=== PATIENT | male | born 1980 | race Caucasian/White ===

== ENCOUNTER 2018-01-07 12:39 | Observation (INO) ==
[2018-01-07] MEDS ORDERED: Aspirin 81 MG TAB.CHEW PO ONE (12:44)
--- NOTE | 2018-01-07 12:50 | Emergency Department Note ---
Disposition Clinical Impression: Tachycardia, Gait difficulty Leukocytosis Qualifiers: Leukocytosis type: unspecified Qualified Code(s): D72.829 - Elevated white blood cell count, unspecified Disposition: Admitted As Inpatient Condition: Good Referrals: Mikey Jaime MD [Primary Care Provider] - Forms: Work/School Release, ED Satisfaction Letter Time of Disposition: 15:13 General Adult HPI - General Chief complaint: ED General Medical Stated complaint: Illness Time Seen by Provider: 01/07/18 12:43 Source: patient, EMS Mode of arrival: EMS Limitations: no limitations Nursing Notes Reviewed: Yes Vital Signs Reviewed: Yes - History of Present Illness HPI Narrative: Patient is a 37-year-old male with past medical history of hypertension. He presents today via EMS due to "leaning to the right ", sweating. EMS states that they were initially called for possible heart attack. 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 He began to fill like he was leaning to the right, denies any specific numbness, tingling, weakness. Denies any vertigo, does not feel that the room is spinning, does not feel lightheaded. He does have some shortness of breath but denies any chest pain. Denies any history of IA or stent placement in the past. Admits to some nausea but denies any other vomiting, diarrhea, abdominal pain, fevers. He does also admit to urinary retention, he recently started on Flomax. He does report that he was trying to urinate when this episode started. Denies any pain with urination, any blood in his urine or dark urine, discharge. No history of stroke in the past. No personal history of blood clots. He does state that his father has had multiple blood clots in the past. No calf or leg pain/redness. - Related Data Home Medications Medication Instructions Recorded Confirmed Lisinopril [Zestril] 10 mg PO DAILY 01/01/18 01/01/18 Simvastatin [Zocor] 20 mg PO HS 01/01/18 01/01/18 traZODone [TraZODone] 100 mg PO DAILY 01/01/18 01/01/18 Previous Rx's Medication Instructions Recorded Haloperidol [Haldol] 10 mg PO BID #60 tablet 05/14/16 Tamsulosin [Flomax] 0.4 mg PO DAILY #20 cap.er.24h 01/01/18 Allergies Allergy/AdvReac Type Severity Reaction Status Date / Time No Known Allergies Allergy Verified 01/01/18 10:01 All systems ED: reviewed and negative except as stated. Constitutional: Denies: fever Cardiovascular: Denies: chest pain Respiratory: Reports: dyspnea Gastrointestinal: Reports: nausea. Denies: abdominal pain, vomiting, diarrhea, constipation Neurological: Reports: other (Leaning to the right when walking). Denies: weakness, numbness, vertigo Past Medical History - Past Medical History Attestation: Yes The following information was validated with the patient. Source: patient Medical history: Reports: non-contributory, hypertension Psychiatric history: Reports: no psych history - Social History Smoking Status: Current every day smoker Smokeless Tobacco Status: No Alcohol use: Reports: occasionally Physical Exam - General Limitations: no limitations General appearance: alert, anxious, other (diaphoretic) - Head Head exam: atraumatic, normocephalic, normal inspection - Eye Eye exam: Present: normal appearance, PERRL, EOMI - ENT ENT exam: normal exam, normal oropharynx, mucous membranes moist - Neck Neck exam: Present: normal inspection, full ROM, trachea midline - Chest Chest inspection: Present: normal inspection, symmetric chest wall rise - Respiratory Respiratory exam: Present: normal lung sounds bilaterally - Cardiovascular Cardiovascular exam: Present: regular rate, normal rhythm, normal heart sounds - Abdominal Exam Abdominal exam: Present: soft, Non-Tender. Absent: tenderness, distention, guarding, rebound, rigidity - Extremities Exam Extremities exam: Present: normal inspection, full ROM. Absent: tenderness, pedal edema, calf tenderness - Neurological Exam Neurological exam: Present: alert, oriented X3, CN II-XII intact. Absent: motor sensory deficit - Expanded Neurological Exam Patient oriented to: Present: person, place, time Speech: Present: fluid speech Cranial nerves: EOM function (II, III, IV, ): Normal, facial sensation (V): Normal, facial palsy (VII): Normal, spinal accessory function (XI): Normal, tongue deviation (XII): Normal Cerebellar function: finger to nose: Normal Motor strength - LUE: 5/5 Motor strength - RUE: 5/5 Motor strength - LLE: 5/5 Motor strength - RLE: 5/5 Sensory exam upper extremity: light touch: Normal Sensory exam lower extremity: light touch: Normal Coma Scale Eye Opening: Spontaneous Coma Scale Motor Response: Obeys Commands Coma Scale Verbal Response: Oriented Coma Scale Total: 15 - Psychiatric Psychiatric exam: Present: normal affect, normal mood - Skin Skin exam: Present: warm, dry, intact, normal color Course Course Narrative: Patient was initially hypoxic around 89% on room air on arrival, he is now around 93%. He does appear diaphoretic, short of breath. No personal history of DVT or PE. However, he does have a family history. There is concern for possible PE the patient is low risk factors. Will obtain d-dimer. We will also obtain basic labs, troponin. We will also obtain chest x-ray, EKG. His NIH on presentation was a 0. No cerebellar signs. However, we will go ahead and obtain CT the head due to the patient's concern for leaning to the right. Will also give fluids for tachcyardia. 01/07/2018 at 12:52. EKG #1. Sinus tachycardia. Rate 125. CO 161. QRS 109. QTc 449. No acute ST elevation or depression. 14:54 chest x-ray negative. Head CT negative. Patient still has sensation that he is falling to the right but has no nystagmus, no focal neurologic deficits, no cerebellar signs. Troponin negative. D-dimer negative. Patient has elevation white blood cell count. No current signs of infection. Again, chest x-ray is negative, no skin findings, he has no current abdominal pain. Still mildly tachycardic, fluids are currently infusing. I discussed admitting the patient for further CVA/TIA workup and further assessment of tachycardia and unexplained white blood cell count. He was agreeable with this plan. Of note, bedside ultrasound was performed of the bladder and showed 110 mL of urine. Patient states that he has not urinated since arriving. No large amount of ur inary retention at this time. Urinalysis is pending. I talked with hospitalist Dr. Cason, he has requested blood cultures to be obtained as well. Patient will be admitted to [address] [place] [address] for close observation. Patient does not meet any SIRS criteria at this time but does have elevated heart rate still at this time. They will monitor for fever or any additional signs of infection and will follow up on urinalysis. Chest X-Ray 01/07/18 12:44 IMPRESSION: No acute cardiopulmonary process. D/ / 01/07/2018 13:05:04 Ludwig Mitchell MD / lizzette Interpreting Provider: Ludwig Mitchell MD Head CT 01/07/18 12:46 IMPRESSION: No acute intracranial abnormality. D/ / Iron Rodriguez MD / Iron Rodriguez MD Interpreting Provider: Iron Rodriguez MD Vital Signs Temperature 98.4 F 01/07/18 12:44 Pulse Rate 124 01/07/18 12:44 Respiratory Rate 14 01/07/18 12:44 Blood Pressure 143/83 01/07/18 12:44 O2 Sat by Pulse Oximetry 92 01/07/18 12:44 Temperature 98.4 F 01/07/18 12:44 Pulse Rate 112 01/07/18 13:53 Respiratory Rate 19 01/07/18 13:53 Blood Pressure 132/78 01/07/18 13:53 O2 Sat by Pulse Oximetry 92 01/07/18 13:53 Oxygen Delivery Oxygen Delivery Room Air Medical Decision Making - MDM Narrative Medical decision making narrative: Patient was initially hypoxic around 89% on room air on arrival, he is now around 93%. He does appear diaphoretic, short of breath. No personal history of DVT or PE. However, he does have a family history. There is concern for possible PE the patient is low risk factors. Will obtain d-dimer. We will also obtain basic labs, troponin. We will also obtain chest x-ray, EKG. His NIH on presentation was a 0. No cerebellar signs. However, we will go ahead and obtain CT the head due to the patient's concern for leaning to the right. Will also give fluids for tachcyardia. 01/07/2018 at 12:52. EKG #1. Sinus tachycardia. Rate 125. CO 161. QRS 109. QTc 449. No acute ST elevation or depression. 14:54 chest x-ray negative. Head CT negative. Patient still has sensation that he is falling to the right but has no nystagmus, no focal neurologic deficits, no cerebellar signs. Troponin negative. D-dimer negative. Patient has elevation white blood cell count. No current signs of infection. Again, chest x-ray is negative, no skin findings, he has no current abdominal pain. Still mildly tachycardic, fluids are currently infusing. I discussed admitting the patient for further CVA/TIA workup and further assessment of tachycardia and unexplained white blood cell count. He was agreeable with this plan. Of note, bedside ultrasound was performed of the bladder and showed 110 mL of urine. Patient states that he has not urinated since arriving. No large amount of urinary retention at this time. Urinalysis is pending. I talked with hospitalist Dr. Cason, he has requested blood cultures to be obtained as well. Patient will be admitted to [address] [place] [address] for close observation. Patient does not meet any SIRS criteria at this time but does have elevated heart rate still at this time. They will monitor for fever or any additional signs of infection and will follow up on urinalysis. - Medical Records Medical records reviewed: Yes I reviewed the patient's medical records. - Lab Data Lab results reviewed: Yes I reviewed the patient's lab results. Result diagrams: 01/07/18 12:54 01/07/18 12:54 Lab Results 01/07/18 01/07/18 01/07/18 Range/Units 12:44 12:54 12:54 WBC 17.9 H (4.3-11.1) K/mcL RBC 5.20 (4.19-5.50) M/mcL Hgb 16.0 (12.9-16.9) g/dL Hct 47.1 (37.5-50.1) % MCV 90.6 (83.0-100.0) fL MCH 30.8 (28.0-33.3) pg MCHC 34.0 (31.6-35.5) g/dL RDW 13.6 (11.5-14.5) % Plt Count 368 (140-400) K/mcL MPV 10.2 (9.4-12.4) fL Immature Gran % 0.5 (0-4) % Seg Neutrophils % 83.4 % Lymphocytes % 11.0 % Monocytes % 4.7 % Eosinophils % 0.1 % Basophils % 0.3 % Neutrophils # 14.9 H (1.6-8.9) K/mcL Lymphocytes # 2.0 (0.6-4.6) K/mcL Monocytes # 0.8 (0.0-1.3) K/mcL Eosinophils # 0.0 (0.0-0.6) K/mcL Basophils # 0.1 (0.0-0.2) K/mcL PT 11.8 (9.4-12.1) Seconds INR 1.0 APTT 32.2 (26.0-36.0) Seconds D-Dimer 496 (0-500) ng/mLFEU Sodium 140 (136-145) mEq/L Potassium 3.5 (3.5-5.1) mEq/L Chloride 108 H (98-107) mEq/L Carbon Dioxide 19 L (23-29) mEq/L BUN 17 (6-20) mg/dL Creatinine 1.03 (0.70-1.30) mg/dL Est GFR ( Amer) > 60 (> 60) Est GFR (Non-Af Amer) > 60 (> 60) BUN/Creatinine Ratio 17 (6-26) Glucose 108 H (70-105) mg/dL Calculated Osmolality 292 (280-300) Calcium 9.6 (8.6-10.3) mg/dL Troponin I < 0.03 (< 0.04) ng/mL - Radiology Data Radiology results reviewed: Yes I reviewed the patient's radiology results. - EKG Data EKG #1 EKG attestation: Yes I reviewed and interpreted this EKG. Hong - Hong Situation: Demographics, MOA Background: Presenting Complaint, Relevant PMH, Meds, & Allergies Assessment: Vital Signs, Course and respsone to treatment, Exam Concerns, Patie nt/Family Expectation, Pertinant Lab Results, Outstanding Labs (Pending UA and blood cultures) Recommendation: Barrier(s) to disposition, Recommendation based on pending studi es, treatments, or consults Hong Report Given to: Dr. Kamla Pitts Repor Time: 15:13
[2018-01-07] MEDS ORDERED: 0.9 % Sodium Chloride 1,000 ML IVC ONE (12:53)
[2018-01-07 13:20] LABS: Basophils # 0.1 K/mcL (0.0-0.2); Basophils % 0.3 %; Eosinophils % 0.1 %; Hematocrit 47.1 % (37.5-50.1); Immature Granulocytes % 0.5 % (0-4); Mean Corpuscular Hemoglobin 30.8 pg (28.0-33.3); Mean Corpuscular Volume 90.6 fL (83.0-100.0); Mean Platelet Volume 10.2 fL (9.4-12.4); Monocytes # 0.8 K/mcL (0.0-1.3); Monocytes % 4.7 %; Neutrophils # 14.9 K/mcL (1.6-8.9); Platelet Count 368 K/mcL (140-400); Red Cell Distribution Width 13.6 % (11.5-14.5); Segmented Neutrophils % 83.4 %
[2018-01-07 13:28] LABS: Prothrombin Time 11.8 Seconds (9.4-12.1)
[2018-01-07 13:30] LABS: Activated Partial Thrombo Time 32.2 Seconds (26.0-36.0)
[2018-01-07 13:42] LABS: Troponin I < 0.03 ng/mL (< 0.04)
[2018-01-07 13:44] LABS: BUN/Creatinine Ratio 17 (6-26); Blood Urea Nitrogen 17 mg/dL (6-20); Calcium 9.6 mg/dL (8.6-10.3); Carbon Dioxide 19 mEq/L (23-29); Chloride 108 mEq/L (98-107); Glucose 108 mg/dL (70-105); Osmolality,Calculated 292 (280-300); Potassium 3.5 mEq/L (3.5-5.1); Sodium 140 mEq/L (136-145); eGFR For Non-African Americans > 60 (> 60)
[2018-01-07 16:14] LABS: Bilirubin,Urine Negative (Negative); Blood,Urine Small (Negative); Clarity,Urine Turbid (Clear); Color,Urine Yellow (Yellow); Glucose,Urine (UA) Normal (Normal); Ketones,Urine Trace mg/dL (Negative); Leukocyte Esterase,Urine Negative (Negative); Nitrite,Urine Negative (Negative); PH,Urine 5.5 pH Units (5.0-8.0); Protein,Urine 30 mg/dL (Neg-Trace); Specific Gravity,Urine 1.028 (1.010-1.025); Urobilinogen,Urine Normal (Normal)
[2018-01-07] MEDS ORDERED: Naloxone 0.4 MG/ML INJ IVP PRN (16:16)
[2018-01-07] MEDS ORDERED: Acetaminophen 325 MG TABLET PO PRN (16:16)
[2018-01-07 16:19] LABS: Bacteria,Urine None Seen per hpf (None-Few); Squamous Epithelial Cell,Urine Many per lpf (None-Few)
--- NOTE | 2018-01-07 16:31 | Internal Med History&Physical ---
Date of Encounter: 01/07/18 Time of Encounter: 15:30 Internal Medicine - H&P: HPI Chief complaint: Lean to right on walking Admitted From: Home Plans for Post Hospital Care: Home History of present illness: Mr. Porras is a 37 year old male presented to ER for leaning on right when walking. Past medical history is significant for schizoaffective disorder, psychosis, hypertension, difficulty urinating. Patient said he has difficulty urinating for about 2 months. Denies dysuria or burning but has increased the urinating frequency. Patient was scheduled to see a urologist as outpatient. Today patient found he always lean to right when walking. Patient denies headache, dizziness, slurred speech, weakness/tingli ng/numbness of body, denies urinary or fecal incontinence. Patient is on by mouth Haldol. He denies suicidal or homicidal idea. Patient also feels illness today with low fever 99.2, runny nose. Patient denies sore throat, shortness of breath, chest pain, abdominal pain, vomiting. He has a chronic cough, which he thought is related to lisinopril. Patient has mild nausea yesterday, no vomiting. No nausea today. Patient has 1 episode of diarrhea 2 days ago but has normal bowel movement yesterday and today. In the emergency room, he was found tachycardia, leukocytosis. Chest x-ray negative. Head CAT scan negative. Patient was admitted for further management. Past Med Surg Social Fam HX - Past Medical History Medical history: non-contributory, hypertension Psychiatric history: no psych history - Past Surgical History Additional surgical history: Hand sx, ear tubes - Social History Smoking Status: Current every day smoker Smokeless Tobacco Status: No Alcohol use: occasionally Drug use: none - Family History Father Living Status: Still Living Hx Family Cardiac Disorders: Yes Mother Living Status: Still Living Hx Family Endocrine Disorder: Yes (DM) Internal Medicine - H&P: Meds Lisinopril [Zestril] 10 mg PO DAILY 01/01/18 [History] Simvastatin [Zocor] 20 mg PO HS 01/01/18 [History] Tamsulosin [Flomax] 0.4 mg PO DAILY #20 cap.er.24h 01/01/18 [Rx] traZODone [TraZODone] 100 mg PO DAILY 01/01/18 [History] Allergy/AdvReac Type Severity Reaction Status Date / Time No Known Allergies Allergy Verified 01/01/18 10:01 All Systems PM: A 10-system review of systems was performed and is negative for pertinent findings except as documented above in the HPI. - Constitutional Vitals: Temp Pulse Resp BP Pulse Ox 98.4 F 105 20 135/72 97 01/07/18 12:44 01/07/18 15:56 01/07/18 15:56 01/07/18 15:56 01/07/18 15:56 General appearance: Present: A&O X 3, no acute distress, answers questions appropriately Exam: Pt is AAO x 3, in NAD HEENT: NC/AT, PERRL Neck: Supple, no JVD, no LAD Lungs: CTA b/l Heart: S1S2, RRR, HR 103 Abd: Soft, nontender, BS present Ext: ROM wnl, no pedal edema Neuro: No focal deficit, finger to nose test shows mild slow. Internal Med - H&P Results - Labs CBC & Chem 7: 01/07/18 12:54 01/07/18 12:54 Labs: Short CBC 01/07/18 Range/Units 12:54 WBC 17.9 H (4.3-11.1) K/mcL Hgb 16.0 (12.9-16.9) g/dL Hct 47.1 (37.5-50.1) % Plt Count 368 (140-400) K/mcL Neutrophils # 14.9 H (1.6-8.9) K/mcL BMP 01/07/18 12:54 Sodium 140 Potassium 3.5 Chloride 108 H Carbon Dioxide 19 L BUN 17 Creatinine 1.03 Glucose 108 H Calcium 9.6 Cardiac Enzymes 01/07/18 Range/Units 12:54 Troponin I < 0.03 (< 0.04) ng/mL Urine 01/07/18 Range/Units 15:51 Urine Color Yellow (Yellow) Urine Clarity Turbid A (Clear) Urine pH 5.5 (5.0-8.0) pH Units Ur Specific [place] 1.028 H (1.010-1.025) Urine Protein 30 H (Neg-Trace) mg/dL Urine Glucose (UA) Normal (Normal) mg/dL - Impressions ITS Impressions Chest X-Ray 01/07/18 12:44 IMPRESSION: No acute cardiopulmonary process. D/ / 01/07/2018 13:05:04 Ludwig Mitchell MD / lizzette Interpreting Provider: Ludwig Mitchell MD Head CT 01/07/18 12:46 IMPRESSION: No acute intracranial abnormality. D/ / Iron Rodriguez MD / Iron Rodriguez MD Interpreting Provider: Iron Rodriguez MD - Assessment and plan (1) SIRS (systemic inflammatory response syndrome) Current Visit: Yes Status: Acute Assessment and plan: Patient to meet SIRS criteria with leukocytosis and tachycardia. No clear source of infection but has difficulty urinating and increased frequency. - We will empirically start her Rocephin for possible UTI. May discontinue if SIRS resolved and culture negative. - IV fluid given from ER, will continue. Will check lactate level. - Respiratory viral panel to rule out viral infection (2) DVT prophylaxis Current Visit: Yes Status: Acute Assessment and plan: Heparin subcutaneously (3) Gait difficulty Current Visit: Yes Status: Acute Assessment and plan: Patient complaint leaning on the right when walking. Improved in the emergency room. No motor/sensation deficit identified. Highly suspect side effect of haldol use. - Last Haldol dose was last night. Will hold Haldol, consult psychiatry for medication adjustment. - Continue closely monitor patient. - NIHSS score 0, pt is young, not consider CVA or TIA (4) Leukocytosis Current Visit: Yes Status: Acute Assessment and plan: Neutrophil dominated leukocytosis. - Place patient on Rocephin at this point for possible UTI - Continue follow-up CBC in a.m. Qualifiers: Leukocytosis type: unspecified Qualified Code(s): D72.829 - Elevated white blood cell count, unspecified (5) Tachycardia Current Visit: Yes Status: Acute Assessment and plan: Management as above (6) Dysuria Current Visit: No Status: Acute Assessment and plan: Management as above. For difficulty urinating, bladder scan in ER done, no urinary retention, will continue Flomax, continue follow-up with urology as outpatient. - Time Spent With Patient Total time spent is greater than 50% in coordination of care (as documented) at patient's floor/unit and/or counseling patient: 30 min 25 - 35 minutes
[2018-01-07 16:35] LABS: Hyaline Casts,Urine Few per lpf (None-Few)
[2018-01-07] MEDS ORDERED: cefTRIAXone 1,000 MG in Water for inj. (sterile) 20 ML 10 ML IVPB ONE (17:00)
[2018-01-07] MEDS: *HR* Heparin 5,000 UNIT/ML VIAL SQ SCH (18:18)
[2018-01-07] MEDS: Nicotine 14 MG PATCH.TD24 TD SCH (18:19)
[2018-01-07] MEDS: 0.9 % Sodium Chloride 1,000 ML IVC SCH (18:19)
[2018-01-07] MEDS: cefTRIAXone 1,000 MG in Water for inj. (sterile) 20 ML 10 ML IVPB SCH (18:19)
[2018-01-07] MEDS ORDERED: Melatonin 3 MG TABLET PO PRN (20:46)
[2018-01-07] MEDS ORDERED: traZODone 50 MG TABLET PO SCH (21:00)
--- NOTE | 2018-01-08 02:30 | Electrocardiograph Report ---
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
[2018-01-08] MEDS: 0.9 % Sodium Chloride 1,000 ML IVC SCH (04:39)
[2018-01-08 04:59] LABS: Basophils # 0.1 K/mcL (0.0-0.2); Basophils % 0.5 %; Eosinophils # 0.4 K/mcL (0.0-0.6); Eosinophils % 2.4 %; Hematocrit 43.2 % (37.5-50.1); Immature Granulocytes % 0.3 % (0-4); Lymphocytes # 5.6 K/mcL (0.6-4.6); Lymphocytes % 37.7 %; Mean Corpuscular HGB Conc 32.2 g/dL (31.6-35.5); Mean Corpuscular Hemoglobin 29.7 pg (28.0-33.3); Mean Corpuscular Volume 92.3 fL (83.0-100.0); Mean Platelet Volume 10.3 fL (9.4-12.4); Monocytes # 0.9 K/mcL (0.0-1.3); Monocytes % 6.1 %; Neutrophils # 7.8 K/mcL (1.6-8.9); Platelet Count 320 K/mcL (140-400); Red Blood Count 4.68 M/mcL (4.19-5.50); Red Cell Distribution Width 14.1 % (11.5-14.5)
[2018-01-08 05:15] LABS: Hemoglobin 13.9 g/dL (12.9-16.9)
[2018-01-08 05:19] LABS: BUN/Creatinine Ratio 21 (6-26); Blood Urea Nitrogen 15 mg/dL (6-20); Calcium 8.4 mg/dL (8.6-10.3); Carbon Dioxide 21 mEq/L (23-29); Chloride 108 mEq/L (98-107); Glucose 105 mg/dL (70-105); Magnesium 2.1 mg/dL (1.6-2.6); Osmolality,Calculated 285 (280-300); Potassium 3.7 mEq/L (3.5-5.1); Sodium 137 mEq/L (136-145); eGFR For Non-African Americans > 60 (> 60)
[2018-01-08] MEDS: *HR* Heparin 5,000 UNIT/ML VIAL SQ SCH ×2 (05:50→18:34)
[2018-01-08 07:28] LABS: Adenovirus Not Detected (Not Detect); Bordetella Pertussis Not Detected (Not Detect); Chlamydophila pneumoniae Not Detected (Not Detect); Coronavirus 229E Not Detected (Not Detect); Coronavirus HKU1 Not Detected (Not Detect); Coronavirus NL63 Not Detected (Not Detect); Coronavirus OC43 Not Detected (Not Detect); Human Metapneumovirus Not Detected (Not Detect); Human Rhinovirus/Enterovirus Not Detected (Not Detect); Influenza A Subtype 2009 H1 Not Detected (Not Detect); Influenza A Untypeable Not Detected (Not Detect); Influenza B Not Detected (Not Detect); Mycoplasma pneumoniae Not Detected (Not Detect); Parainfluenza Virus 1 Not Detected (Not Detect); Parainfluenza Virus 2 Not Detected (Not Detect); Parainfluenza Virus 3 Not Detected (Not Detect); Parainfluenza Virus 4 Not Detected (Not Detect); Respiratory Syncytial Virus Not Detected (Not Detect)
[2018-01-08] MEDS: Nicotine 14 MG PATCH.TD24 TD SCH (09:52)
--- NOTE | 2018-01-08 15:58 | Internal Med Progress Note ---
Hospitalist Progress Note - Encounter Date of Encounter: 01/08/18 Time of Encounter: 15:55 - Subjective Interval History: I have seen and evaluated the patient at bedside. Patient reports that the leaning to the right side has resolved. But patient mother in the room reports lip smacking. He denies chest pain, shortness of breath or abdominal pain. - Exam Vitals: Temp Pulse Resp BP Pulse Ox 97.6 F 95 15 148/87 92 01/08/18 08:11 01/08/18 08:11 01/08/18 08:11 01/08/18 08:11 01/08/18 08:11 Exam: Vitals: Reviewed. General: Obese, Alert and oriented x4. In mild distress due to lip smacking Skin: Normal color, no rash, no lesions. HEENT: EOM, pupils equal, round and reactive. Cardiovascular: RRR, Normal S1 & S2, no rubs, murmurs or gallops. Lungs: Clear to auscultation bilaterally, no wheezes or crackles. Abdomen: Soft, non-tender, no rigidity. Extremities: No deformity, no edema or tenderness, no joint swelling or clubbing. Neurological: Normal cognition and motor skills. Rest of the physical exam is non contributory - Assessment and Plan (1) Gait difficulty Current Visit: Yes Status: Acute Assessment and Plan: Associated with leaning to the right side and smacking of the lips. Patient has been on Haldol for schizoaffective disorder. Possible early signs of tardive dyskinesia? Plan Psychiatrist has been consulted. On amantadine 100 mg by mouth twice a day. Diphemphydramine 25mg/PO Q8HRS PRN (2) Dysuria Current Visit: No Status: Acute Assessment and Plan: Patient being treated empirically for UTI. We will continue ceftriaxone 1 g IV daily. (3) Leukocytosis Current Visit: Yes Status: Acute Assessment and Plan: Multifactorial. Possible due to urinary tract infection. Patient being covered empirically with IV antibiotics. (4) SIRS (systemic inflammatory response syndrome) Current Visit: Yes Status: Resolved (5) Hypertension Current Visit: Yes Status: Chronic Assessment and Plan: Blood pressure has been well controlled. Continue losartan 25 mg by mouth daily. DVT Prophylaxis: On heparin 5000 units subcutaneous twice a day. - Summary of Assessment and Plan Summary of Assessment and Plan: Patient to remain in the hospital due to possible extrapyramidal symptoms secondary to Haldol use. - Time Spent with Patient Total time spent is greater than 50% in coordination of care (as documented) at patient's floor/unit and/or counseling patient: Greater than 35 minutes (40) Plan of Care Discussed with: patient (His family and the nurse.) Internal Medicine: Result - Labs CBC & Chem 7: 01/08/18 04:45 01/08/18 04:45 Labs: Short CBC 01/08/18 Range/Units 04:45 WBC 14.8 H (4.3-11.1) K/mcL Hgb 13.9 D (12.9-16.9) g/dL Hct 43.2 (37.5-50.1) % Plt Count 320 (140-400) K/mcL Neutrophils # 7.8 (1.6-8.9) K/mcL BMP 01/08/18 04:45 Sodium 137 Potassium 3.7 Chloride 108 H Carbon Dioxide 21 L BUN 15 Creatinine 0.70 Glucose 105 Calcium 8.4 L Urine 01/07/18 Range/Units 15:51 Urine Color Yellow (Yellow) Urine Clarity Turbid A (Clear) Urine pH 5.5 (5.0-8.0) pH Units Ur Specific [place] 1.028 H (1.010-1.025) Urine Protein 30 H (Neg-Trace) mg/dL Urine Glucose (UA) Normal (Normal) mg/dL - ABG Interpretation ABG results: PT/INR, D-dimer PT 11.8 Seconds (9.4-12.1) 01/07/18 12:44 D-Dimer 496 ng/mLFEU (0-500) 01/07/18 12:44 - Impressions Impressions Chest X-Ray 01/07/18 12:44 IMPRESSION: No acute cardiopulmonary process. D/ / 01/07/2018 13:05:04 Ludwig Mitchell MD / lizzette Interpreting Provider: Ludwig Mitchell MD Consult Discharge Plan - Plan Referrals: Mikey Jaime MD [Primary Care Provider] - (3) Leukocytosis Qualifiers: Leukocytosis type: unspecified Qualified Code(s): D72.829 - Elevated white blood cell count, unspecified (5) Hypertension Qualifiers: Hypertension type: unspecified Qualified Code(s): I10 - Essential (primary) hypertension
--- NOTE | 2018-01-08 16:44 | Consult Note ---
Date of Encounter: 01/08/18 Time of Encounter: 15:45 Assessment & Recommendation (1) Paranoid schizophrenia Current visit: Yes Status: Acute (2) Other drug induced dystonia Current visit: Yes Status: Acute (3) Other drug induced dystonia Current visit: Yes Status: Acute History of Present Illness Patient: new to practice Requesting Physician: Bruce Burr MD Reason for consult: leaning to left History of present illness: Mr. Porras is a 37 year old male This patient has been seen and followed at [facility]. The patient was at work. It was noted that he was leaning to one side and he was brought to the hospital. 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 The patient also had some delay in speech and difficulty in forming words. The patient has been on Haldol 10 mg twice a day and spoke with the patient's brother who has bipolar disorder and is on loxapine and the patient's mother's name is Ira Porras. Ms. Porras the patient's mother is concerned that she has not been able to talk to a doctor about her son's condition he is been on Haldol for 2 years after a recent episode she feels that he is getting worse. She also notes some smacking movements of the lips on suggest that he get his teeth brushed The patient denied hallucinations delusions or significant mood disturbance. He reported that he did not have any dental pain or any problems that he sees Dr. CC: Bruce Burr MD Past Med Surg Social Fam HX - Past Medical History Medical history: non-contributory, hypertension - Past Psychiatric History Psychiatric history: Reports: schizophrenia Family psychiatric history: Yes Family History of Suicide: Unknown - Social History Smoking Status: Current every day smoker Smokeless Tobacco Status: No Alcohol use: occasionally Drug use: none Occupational status: employed Current living situation: Home, With Family Activity Level: Independent ambulation Recent Out of Country Travel Within the Last 8 Weeks: No Exposure or Possible Exposure to Illness During Travel: No - Family History Father Living Status: Still Living Hx Family Cardiac Disorders: Yes (Blood clots) Mother Living Status: Still Living Hx Family Endocrine Disorder: Yes (DM) Medications & Allergies Lisinopril [Zestril] 10 mg PO DAILY 01/01/18 [History] Simvastatin [Zocor] 20 mg PO HS 01/01/18 [History] Tamsulosin [Flomax] 0.4 mg PO DAILY #20 cap.er.24h 01/01/18 [Rx] traZODone [TraZODone] 100 mg PO HS 01/01/18 [History] Haloperidol 10 mg PO BID 01/08/18 [History] Allergy/AdvReac Type Severity Reaction Status Date / Time No Known Allergies Allergy Verified 01/01/18 10:01 Review of Systems Psychiatric: Reports: confusion, difficulty concentrating Psychiatry Exam - Constitutional Vitals: Temp Pulse Resp BP Pulse Ox 97.6 F 95 15 148/87 92 01/08/18 08:11 01/08/18 08:11 01/08/18 08:11 01/08/18 08:11 01/08/18 08:11 General appearance: age & developmentally appropriate, well-groomed, well-nourished - Musculoskeletal Gait: normal Station: relaxed Strength & Tone: normal for patient - Psychiatric Patient Orientation: Yes Person, Yes Time, Yes Place Level of alertness: Alert Behavior: calm, cooperative Psychomotor activity: Normal Eye Contact: Maintains Eye Contact Mood Description: Other Affect description: congruent with mood, full range, blunted Speech Volume: Normal Speech pattern: normal rate, normal rhythm, normal tone, fluent, spontaneous Language & Vocabulary: consistent with education Thought Process: Linear, Goal Oriented Thought Content: No Suicidal ideation, No Homicidal ideation, No Overt delusions Perceptual Disturbances: No Auditory hallucinations, No Visual hallucinations Attention Span Ability: Capable of Sustained Attention Memory Description: Grossly Intact Patient Reliability: Questionable Historian Fund of knowledge: Yes abstraction ability, Yes below average, Yes aware of current events Intelligence Estimate: Average Judgment: Limited Insight: Minimal Results - Labs Labs: Laboratory Last Values WBC 14.8 K/mcL (4.3-11.1) H 01/08/18 04:45 RBC 4.68 M/mcL (4.19-5.50) 01/08/18 04:45 Hgb 13.9 g/dL (12.9-16.9) D 01/08/18 04:45 Hct 43.2 % (37.5-50.1) 01/08/18 04:45 MCV 92.3 fL (83.0-100.0) 01/08/18 04:45 MCH 29.7 pg (28.0-33.3) 01/08/18 04:45 MCHC 32.2 g/dL (31.6-35.5) 01/08/18 04:45 RDW 14.1 % (11.5-14.5) 01/08/18 04:45 Plt Count 320 K/mcL (140-400) 01/08/18 04:45 MPV 10.3 fL (9.4-12.4) 01/08/18 04:45 Immature Gran % 0.3 % (0-4) 01/08/18 04:45 Seg Neutrophils % 53.0 % 01/08/18 04:45 Lymphocytes % 37.7 % 01/08/18 04:45 Monocytes % 6.1 % 01/08/18 04:45 Eosinophils % 2.4 % 01/08/18 04:45 Basophils % 0.5 % 01/08/18 04:45 Neutrophils # 7.8 K/mcL (1.6-8.9) 01/08/18 04:45 Lymphocytes # 5.6 K/mcL (0.6-4.6) H 01/08/18 04:45 Monocytes # 0.9 K/mcL (0.0-1.3) 01/08/18 04:45 Eosinophils # 0.4 K/mcL (0.0-0.6) 01/08/18 04:45 Basophils # 0.1 K/mcL (0.0-0.2) 01/08/18 04:45 PT 11.8 Seconds (9.4-12.1) 01/07/18 12:44 INR 1.0 01/07/18 12:44 APTT 32.2 Seconds (26.0-36.0) 01/07/18 12:44 D-Dimer 496 ng/mLFEU (0-500) 01/07/18 12:44 Sodium 137 mEq/L (136-145) 01/08/18 04:45 Potassium 3.7 mEq/L (3.5-5.1) 01/08/18 04:45 Chloride 108 mEq/L (98-107) H 01/08/18 04:45 Carbon Dioxide 21 mEq/L (23-29) L 01/08/18 04:45 BUN 15 mg/dL (6-20) 01/08/18 04:45 Creatinine 0.70 mg/dL (0.70-1.30) 01/08/18 04:45 Est GFR ( Amer) > 60 (> 60) 01/08/18 04:45 Est GFR (Non-Af Amer) > 60 (> 60) 01/08/18 04:45 BUN/Creatinine Ratio 21 (6-26) 01/08/18 04:45 Glucose 105 mg/dL (70-105) 01/08/18 04:45 Calculated Osmolality 285 (280-300) 01/08/18 04:45 Lactic Acid 1.0 mmol/L (0.5-2.2) 01/08/18 04:45 Calcium 8.4 mg/dL (8.6-10.3) L 01/08/18 04:45 Magnesium 2.1 mg/dL (1.6-2.6) 01/08/18 04:45 Troponin I < 0.03 ng/mL (< 0.04) 01/07/18 12:54 Urine Color Yellow (Yellow) 01/07/18 15:51 Urine Clarity Turbid (Clear) A 01/07/18 15:51 Urine pH 5.5 pH Units (5.0-8.0) 01/07/18 15:51 Ur Specific [place] 1.028 (1.010-1.025) H 01/07/18 15:51 Urine Protein 30 mg/dL (Neg-Trace) H 01/07/18 15:51 Urine Glucose (UA) Normal mg/dL (Normal) 01/07/18 15:51 Urine Ketones Trace mg/dL (Negative) H 01/07/18 15:51 Urine Blood Small (Negative) H 01/07/18 15:51 Urine Nitrite Negative (Negative) 01/07/18 15:51 Urine Bilirubin Negative (Negative) 01/07/18 15:51 Urine Urobilinogen Normal mg/dL (Normal) 01/07/18 15:51 Ur Leukocyte Esterase Negative (Negative) 01/07/18 15:51 Urine Microscopic RBC 5-15 per hpf (0-3) H 01/07/18 15:51 Urine Microscopic WBC 5-15 per hpf (0-3) H 01/07/18 15:51 Ur Squamous Epith Cells Many per lpf (None-Few) H 01/07/18 15:51 Urine Bacteria None Seen per hpf (None-Few) 01/07/18 15:51 Hyaline Casts Few per lpf (None-Few) 01/07/18 15:51 Ur Culture Indicated? NO (NO) 01/07/18 15:51 Chlamy pneumoniae PCR Not Detected (Not Detect) 01/08/18 05:54 Adenovirus (PCR) Not Detected (Not Detect) 01/08/18 05:54 B. pertussis DNA (PCR) Not Detected (Not Detect) 01/08/18 05:54 B.parapertussis DNA PCR Not Detected (Not Detect) 01/08/18 05:54 Coronavirus OC43 (PCR) Not Detected (Not Detect) 01/08/18 05:54 Coronavirus HKU1 (PCR) Not Detected (Not Detect) 01/08/18 05:54 Coronavirus 229E (PCR) Not Detected (Not Detect) 01/08/18 05:54 Coronavirus NL63 (PCR) Not Detected (Not Detect) 01/08/18 05:54 Human Metapneumovir PCR Not Detected (Not Detect) 01/08/18 05:54 Influenza A (H1) PCR Not Detected (Not Detect) 01/08/18 05:54 Influ A (H1N1/09) PCR Not Detected (Not Detect) 01/08/18 05:54 Influenza A (H3) PCR Not Detected (Not Detect) 01/08/18 05:54 Influenza A Untype (PCR) Not Detected (Not Detect) 01/08/18 05:54 Influenza Type B (PCR) Not Detected (Not Detect) 01/08/18 05:54 M.pneumoniae DNA (PCR) Not Detected (Not Detect) 01/08/18 05:54 Parainfluenza 1 (PCR) Not Detected (Not Detect) 01/08/18 05:54 Parainfluenza 2 (PCR) Not Detected (Not Detect) 01/08/18 05:54 Parainfluenza 3 (PCR) Not Detected (Not Detect) 01/08/18 05:54 Parainfluenza 4 (PCR) Not Detected (Not Detect) 01/08/18 05:54 RSV (PCR) Not Detected (Not Detect) 01/08/18 05:54 Entero/Rhino (PCR) Not Detected (Not Detect) 01/08/18 05:54 Consult Discharge Plan - Plan Referrals: Mikey Jaime MD [Primary Care Provider] -
[2018-01-08] MEDS: cefTRIAXone 1,000 MG in Water for inj. (sterile) 20 ML 10 ML IVPB SCH (18:33)
[2018-01-08] MEDS ORDERED: traZODone 50 MG TABLET PO SCH (21:00)
[2018-01-08] MEDS: Amantadine Oral Soln 50 MG/5 ML UDC PO SCH (22:04)
[2018-01-09 03:45] LABS: Basophils # 0.1 K/mcL (0.0-0.2); Basophils % 0.6 %; Eosinophils # 0.4 K/mcL (0.0-0.6); Eosinophils % 3.4 %; Hematocrit 41.4 % (37.5-50.1); Hemoglobin 14.2 g/dL (12.9-16.9); Immature Granulocytes % 0.2 % (0-4); Lymphocytes # 5.7 K/mcL (0.6-4.6); Lymphocytes % 43.9 %; Mean Corpuscular HGB Conc 34.3 g/dL (31.6-35.5); Mean Corpuscular Hemoglobin 30.6 pg (28.0-33.3); Mean Corpuscular Volume 89.2 fL (83.0-100.0); Mean Platelet Volume 10.3 fL (9.4-12.4); Monocytes # 0.9 K/mcL (0.0-1.3); Monocytes % 7.3 %; Neutrophils # 5.8 K/mcL (1.6-8.9); Platelet Count 325 K/mcL (140-400); Red Blood Count 4.64 M/mcL (4.19-5.50); Segmented Neutrophils % 44.6 %
[2018-01-09 03:58] LABS: BUN/Creatinine Ratio 14 (6-26); Blood Urea Nitrogen 10 mg/dL (6-20); Calcium 9.2 mg/dL (8.6-10.3); Carbon Dioxide 26 mEq/L (23-29); Chloride 105 mEq/L (98-107); Glucose 99 mg/dL (70-105); Magnesium 2.2 mg/dL (1.6-2.6); Osmolality,Calculated 281 (280-300); Potassium 3.7 mEq/L (3.5-5.1); Sodium 136 mEq/L (136-145); eGFR For Non-African Americans > 60 (> 60)
[2018-01-09] MEDS: *HR* Heparin 5,000 UNIT/ML VIAL SQ SCH (05:36)
[2018-01-09 08:26] VITALS: BP 148/81
[2018-01-09] MEDS: Amantadine Oral Soln 50 MG/5 ML UDC PO SCH (09:35)
[2018-01-09] MEDS: Nicotine 14 MG PATCH.TD24 TD SCH (09:37)
--- NOTE | 2018-01-09 11:43 | Discharge Summary ---
- NOTES TO OUTPATIENT PROVIDER Notes to Outpatient Provider: Follow-up with psychiatry within a week of hospital discharge. Orders not resulted at time of discharge: Pending orders 01/07/18 15:27 Culture,Blood [BC] Stat Date of Encounter: 01/09/18 Time of Encounter: 11:40 - Discharge Diagnosis (1) Tardive dystonia Priority: Primary Status: Resolved (2) Gait difficulty Priority: Secondary Status: Resolved (3) Leukocytosis Priority: Secondary Status: Acute Qualifiers: Leukocytosis type: unspecified Qualified Code(s): D72.829 - Elevated white blood cell count, unspecified (4) SIRS (systemic inflammatory response syndrome) Priority: Secondary Status: Resolved (5) Hypertension Priority: Secondary Status: Chronic Qualifiers: Hypertension type: unspecified Qualified Code(s): I10 - Essential (primary) hypertension Hospital course: Mr. Porras is a 37 year old male Past medical history is significant for schizoaffective disorder, psychosis, hypertension, difficulty urinating. Patient brought to the hospital as he was found to lean to right when walking and having smacking of the tongue and lips. Patient admitted to the hospital for tardive dystonia. Psychiatry consulted, recommended to continue Haldo and started the patient on Amantadine 100mg/PO daily. Also recommended to follow up with them as outpatient within a week of hospital discharge. On presentation patient found to have elevated WBC of 17.0 and having urinary symptoms for which the patient was treated empirically for a UTI. Being discharged home oral antibiotics to complete 7 days. Patient acute symptoms on presentation have resolved, discussed with psychiatry who agreed on discharging the patient and following up with them. - Time Spent with Patient Total time spent providing and/or coordinating discharge services: Greater than 30 minutes (35) - Discharge Medications Prescriptions: Amantadine [Symmetrel] 100 mg PO BID 30 Days #60 udc Amoxicillin/Clavulanate [Augmentin] 500 mg PO BIDWM 5 Days #10 tablet Losartan [Cozaar] 25 mg PO DAILY 30 Days #30 tablet Home Medications: Simvastatin [Zocor] 20 mg PO HS 01/01/18 [History] Tamsulosin [Flomax] 0.4 mg PO DAILY #20 cap.er.24h 01/01/18 [Rx] traZODone [TraZODone] 100 mg PO HS 01/01/18 [History] Haloperidol 10 mg PO BID 01/08/18 [History] Amantadine [Symmetrel] 100 mg PO BID 30 Days #60 udc 01/09/18 [Rx] Amoxicillin/Clavulanate [Augmentin] 500 mg PO BIDWM 5 Days #10 tablet 01/09/18 [Rx] Losartan [Cozaar] 25 mg PO DAILY 30 Days #30 tablet 01/09/18 [Rx] Allergies/Adverse Reactions: Allergy/AdvReac Type Severity Reaction Status Date / Time No Known Allergies Allergy Verified 01/01/18 10:01 Date of admission: 01/07/18 17:11 Primary care physician: Mikey Jaime MD Consults: 01/07/18 16:23 Consult to Psychiatry [CONS] Stat Consulting Provider: Psychiatry Toyin Reason consult: Medication recommendation Other reason and/or additional details: Pt is on haldol and lean to right on walking, suspect side effect, please consider change meds. - Constitutional Vitals: Temp Pulse Resp BP Pulse Ox 98 F 85 15 148/81 99 01/09/18 04:00 01/09/18 08:25 01/09/18 08:25 01/09/18 08:25 01/09/18 08:25 General appearance: Present: A&O X 3, no acute distress, answers questions appropriately Exam: Vitals: Reviewed. General: Obese, Alert and oriented x4. In mild distress due to lip smacking Skin: Normal color, no rash, no lesions. Cardiovascular: RRR, Normal S1 & S2, no rubs, murmurs or gallops. Lungs: Clear to auscultation bilaterally, no wheezes or crackles. Abdomen: Soft, non-tender, no rigidity. Extremities: No deformity, no edema or tenderness, no joint swelling or clubbing. Neurological: Normal cognition. CN II-XII intact. Rest of the physical exam is non contributory - Patient Status Disposition: Home, Self-Care Condition: Good Functional capacity at discharge: independent ambulation Overall status at discharge: patient is back to baseline - Discharge Instructions Follow Up With: Mikey Jaime MD [Primary Care Provider] - 01/15/18 10:15 am - Diet and Activity Activity: resume usual activities as tolerated Diet: low salt diet
--- NOTE | 2018-01-09 12:16 | Consult Note ---
Date of Encounter: 01/09/18 Time of Encounter: 10:45 Assessment & Recommendation (1) Paranoid schizophrenia Current visit: Yes Status: Acute (2) Other drug induced dystonia Current visit: Yes Status: Acute History of Present Illness Patient: known to practice within the last 3 years Requesting Physician: Brcue Burr MD Reason for consult: follow-up regarding haldol History of present illness: Mr. Porras is a 37 year old male Chief complaint I would like to go home. I do not want to return to work and History of present illness: The patient was seen today for follow-up. He reports that he is improved. This morning he refuses haloperidol. He did receive 2 doses of Symmetrel or amantadine. He noted no particular side effects to the medicine. CC: Bruce Burr MD Past Med Surg Social Fam HX - Past Medical History Medical history: non-contributory, hypertension - Past Psychiatric History Psychiatric history: Reports: bipolar Family psychiatric history: Yes Family History of Suicide: Unknown - Social History Smoking Status: Current every day smoker Smokeless Tobacco Status: No Alcohol use: occasionally Drug use: none Occupational status: employed Current living situation: Home, With Family Activity Level: Independent ambulation Recent Out of Country Travel Within the Last 8 Weeks: No Exposure or Possible Exposure to Illness During Travel: No - Family History Father Living Status: Still Living Hx Family Cardiac Disorders: Yes (Blood clots) Mother Living Status: Still Living Hx Family Endocrine Disorder: Yes (DM) Medications & Allergies Simvastatin [Zocor] 20 mg PO HS 01/01/18 [History] Tamsulosin [Flomax] 0.4 mg PO DAILY #20 cap.er.24h 01/01/18 [Rx] traZODone [TraZODone] 100 mg PO HS 01/01/18 [History] Haloperidol 10 mg PO BID 01/08/18 [History] Amantadine [Symmetrel] 100 mg PO BID 30 Days #60 udc 01/09/18 [Rx] Amoxicillin/Clavulanate [Augmentin] 500 mg PO BIDWM 5 Days #10 tablet 01/09/18 [Rx] Losartan [Cozaar] 25 mg PO DAILY 30 Days #30 tablet 01/09/18 [Rx] Allergy/AdvReac Type Severity Reaction Status Date / Time No Known Allergies Allergy Verified 01/01/18 10:01 Review of Systems Psychiatric: Reports: confusion, difficulty concentrating Psychiatry Exam - Constitutional Vitals: Temp Pulse Resp BP Pulse Ox 98 F 85 15 148/81 99 01/09/18 04:00 01/09/18 08:25 01/09/18 08:25 01/09/18 08:25 01/09/18 08:25 General appearance: age & developmentally appropriate, malodorous, obese - Musculoskeletal Gait: normal Station: other Strength & Tone: other - Psychiatric Patient Orientation: Yes Person, Yes Time, Yes Place Level of alertness: Alert Behavior: calm, cooperative Psychomotor activity: Normal Eye Contact: Maintains Eye Contact Mood Description: Other Affect description: congruent with mood, blunted Speech Volume: Normal Speech pattern: normal rate, normal rhythm, normal tone, fluent, spontaneous Language & Vocabulary: consistent with education Thought Process: Linear, Goal Oriented Thought Content: No Suicidal ideation, No Homicidal ideation, No Overt delusions Perceptual Disturbances: No Auditory hallucinations, No Visual hallucinations Attention Span Ability: Capable of Sustained Attention Memory Description: Grossly Intact Patient Reliability: Reliable Historian Intelligence Estimate: Average Judgment: Fair Insight: Partial Results - Labs Labs: Laboratory Last Values WBC 12.9 K/mcL (4.3-11.1) H 01/09/18 03:18 RBC 4.64 M/mcL (4.19-5.50) 01/09/18 03:18 Hgb 14.2 g/dL (12.9-16.9) 01/09/18 03:18 Hct 41.4 % (37.5-50.1) 01/09/18 03:18 MCV 89.2 fL (83.0-100.0) 01/09/18 03:18 MCH 30.6 pg (28.0-33.3) 01/09/18 03:18 MCHC 34.3 g/dL (31.6-35.5) 01/09/18 03:18 RDW 14.0 % (11.5-14.5) 01/09/18 03:18 Plt Count 325 K/mcL (140-400) 01/09/18 03:18 MPV 10.3 fL (9.4-12.4) 01/09/18 03:18 Immature Gran % 0.2 % (0-4) 01/09/18 03:18 Seg Neutrophils % 44.6 % 01/09/18 03:18 Lymphocytes % 43.9 % 01/09/18 03:18 Monocytes % 7.3 % 01/09/18 03:18 Eosinophils % 3.4 % 01/09/18 03:18 Basophils % 0.6 % 01/09/18 03:18 Neutrophils # 5.8 K/mcL (1.6-8.9) 01/09/18 03:18 Lymphocytes # 5.7 K/mcL (0.6-4.6) H 01/09/18 03:18 Monocytes # 0.9 K/mcL (0.0-1.3) 01/09/18 03:18 Eosinophils # 0.4 K/mcL (0.0-0.6) 01/09/18 03:18 Basophils # 0.1 K/mcL (0.0-0.2) 01/09/18 03:18 PT 11.8 Seconds (9.4-12.1) 01/07/18 12:44 INR 1.0 01/07/18 12:44 APTT 32.2 Seconds (26.0-36.0) 01/07/18 12:44 D-Dimer 496 ng/mLFEU (0-500) 01/07/18 12:44 Sodium 136 mEq/L (136-145) 01/09/18 03:18 Potassium 3.7 mEq/L (3.5-5.1) 01/09/18 03:18 Chloride 105 mEq/L (98-107) 01/09/18 03:18 Carbon Dioxide 26 mEq/L (23-29) 01/09/18 03:18 BUN 10 mg/dL (6-20) 01/09/18 03:18 Creatinine 0.74 mg/dL (0.70-1.30) 01/09/18 03:18 Est GFR ( Amer) > 60 (> 60) 01/09/18 03:18 Est GFR (Non-Af Amer) > 60 (> 60) 01/09/18 03:18 BUN/Creatinine Ratio 14 (6-26) 01/09/18 03:18 Glucose 99 mg/dL (70-105) 01/09/18 03:18 Calculated Osmolality 281 (280-300) 01/09/18 03:18 Lactic Acid 1.0 mmol/L (0.5-2.2) 01/08/18 04:45 Calcium 9.2 mg/dL (8.6-10.3) 01/09/18 03:18 Phosphorus 4.0 mg/dL (2.7-4.5) 01/09/18 03:18 Magnesium 2.2 mg/dL (1.6-2.6) 01/09/18 03:18 Troponin I < 0.03 ng/mL (< 0.04) 01/07/18 12:54 Urine Color Yellow (Yellow) 01/07/18 15:51 Urine Clarity Turbid (Clear) A 01/07/18 15:51 Urine pH 5.5 pH Units (5.0-8.0) 01/07/18 15:51 Ur Specific [place] 1.028 (1.010-1.025) H 01/07/18 15:51 Urine Protein 30 mg/dL (Neg-Trace) H 01/07/18 15:51 Urine Glucose (UA) Normal mg/dL (Normal) 01/07/18 15:51 Urine Ketones Trace mg/dL (Negative) H 01/07/18 15:51 Urine Blood Small (Negative) H 01/07/18 15:51 Urine Nitrite Negative (Negative) 01/07/18 15:51 Urine Bilirubin Negative (Negative) 01/07/18 15:51 Urine Urobilinogen Normal mg/dL (Normal) 01/07/18 15:51 Ur Leukocyte Esterase Negative (Negative) 01/07/18 15:51 Urine Microscopic RBC 5-15 per hpf (0-3) H 01/07/18 15:51 Urine Microscopic WBC 5-15 per hpf (0-3) H 01/07/18 15:51 Ur Squamous Epith Cells Many per lpf (None-Few) H 01/07/18 15:51 Urine Bacteria None Seen per hpf (None-Few) 01/07/18 15:51 Hyaline Casts Few per lpf (None-Few) 01/07/18 15:51 Ur Culture Indicated? NO (NO) 01/07/18 15:51 Chlamy pneumoniae PCR Not Detected (Not Detect) 01/08/18 05:54 Adenovirus (PCR) Not Detected (Not Detect) 01/08/18 05:54 B. pertussis DNA (PCR) Not Detected (Not Detect) 01/08/18 05:54 B.parapertussis DNA PCR Not Detected (Not Detect) 01/08/18 05:54 Coronavirus OC43 (PCR) Not Detected (Not Detect) 01/08/18 05:54 Coronavirus HKU1 (PCR) Not Detected (Not Detect) 01/08/18 05:54 Coronavirus 229E (PCR) Not Detected (Not Detect) 01/08/18 05:54 Coronavirus NL63 (PCR) Not Detected (Not Detect) 01/08/18 05:54 Human Metapneumovir PCR Not Detected (Not Detect) 01/08/18 05:54 Influenza A (H1) PCR Not Detected (Not Detect) 01/08/18 05:54 Influ A (H1N1/09) PCR Not Detected (Not Detect) 01/08/18 05:54 Influenza A (H3) PCR Not Detected (Not Detect) 01/08/18 05:54 Influenza A Untype (PCR) Not Detected (Not Detect) 01/08/18 05:54 Influenza Type B (PCR) Not Detected (Not Detect) 01/08/18 05:54 M.pneumoniae DNA (PCR) Not Detected (Not Detect) 01/08/18 05:54 Parainfluenza 1 (PCR) Not Detected (Not Detect) 01/08/18 05:54 Parainfluenza 2 (PCR) Not Detected (Not Detect) 01/08/18 05:54 Parainfluenza 3 (PCR) Not Detected (Not Detect) 01/08/18 05:54 Parainfluenza 4 (PCR) Not Detected (Not Detect) 01/08/18 05:54 RSV (PCR) Not Detected (Not Detect) 01/08/18 05:54 Entero/Rhino (PCR) Not Detected (Not Detect) 01/08/18 05:54 Consult Discharge Plan - Plan Referrals: Mikey Jaime MD [Primary Care Provider] - 01/15/18 10:15 am Prescriptions: Amantadine [Symmetrel] 100 mg PO BID 30 Days #60 udc Amoxicillin/Clavulanate [Augmentin] 500 mg PO BIDWM 5 Days #10 tablet Losartan [Cozaar] 25 mg PO DAILY 30 Days #30 tablet
== END 2018-01-09 15:39 | disposition home or self-care (01) ==
LOC: EMEROOARM 12:39 → SUATTDRO 17:11 → 2NENU 17:11 → INTOOBSV 17:11 → 2NENU 17:50
PROVIDERS: ADMIT Hospitalist; ATTEND Internal Medicine

== ENCOUNTER 2018-02-02 18:37 | Inpatient (IN) ==
--- NOTE | 2018-02-02 19:02 | Emergency Department Note ---
Disposition Clinical Impression: Chronic schizophrenia, Suicidal ideation Disposition: Still a Patient Condition: Good Referrals: Mikey Jaime MD [Primary Care Provider] - Forms: ED Satisfaction Letter Time of Disposition: 20:50 General Adult HPI - General Chief complaint: ED Psychiatric Symptoms Stated complaint: SI Time Seen by Provider: 02/02/18 18:51 Source: patient, family Mode of arrival: ambulatory Limitations: no limitations - History of Present Illness HPI Narrative: This is a 37-year-old male with a history of schizophrenia switch 7 days ago from Haldol to Jasso. Because of serious adverse side effects from Haldol, brought in by his mother because of poor sleep and suicidal ideation, thinking about cutting himself with a knife, for the last 3 or 4 days. Pain Scale: 0 - Related Data Home Medications Medication Instructions Recorded Confirmed Simvastatin [Zocor] 20 mg PO HS 01/01/18 01/07/18 traZODone [TraZODone] 100 mg PO HS 01/01/18 01/07/18 Haloperidol 10 mg PO BID 01/08/18 01/08/18 Previous Rx's Medication Instructions Recorded Tamsulosin [Flomax] 0.4 mg PO DAILY #20 cap.er.24h 01/01/18 Amantadine [Symmetrel] 100 mg PO BID 30 Days #60 udc 01/09/18 Losartan [Cozaar] 25 mg PO DAILY 30 Days #30 tablet 01/09/18 Allergies Allergy/AdvReac Type Severity Reaction Status Date / Time No Known Allergies Allergy Verified 01/01/18 10:01 All systems ED: reviewed and negative except as stated. Psychiatric: Reports: suicidal thoughts, other (Insomnia, schizophrenia) Past Medical History - Past Medical History Medical history: Reports: non-contributory, hypertension Psychiatric history: Reports: bipolar - Social History Smoking Status: Current every day smoker Smokeless Tobacco Status: No Alcohol use: Reports: occasionally Drug use: Reports: none Physical Exam - General Limitations: no limitations General appearance: alert, in no apparent distress - Head Head exam: atraumatic, normocephalic, normal inspection - Eye Eye exam: Present: normal appearance, PERRL, EOMI. Absent: scleral icterus - Chest Chest inspection: Present: normal inspection, symmetric chest wall rise - Respiratory Respiratory exam: Present: normal lung sounds bilaterally - Cardiovascular Cardiovascular exam: Present: normal rhythm, tachycardia, normal heart sounds - Abdominal Exam Abdominal exam: Present: soft, Non-Tender. Absent: tenderness, distention, guarding, rebound, rigidity - Extremities Exam Extremities exam: Present: normal inspection, full ROM. Absent: tenderness, pedal edema - Neurological Exam Neurological exam: Present: alert, oriented X3 - Psychiatric Psychiatric exam: Present: suicidal ideation (He reports thinking about cutting himself with a knife), other (He appears to be very energetic and wide-eyed.) - Skin Skin exam: Present: warm Course Course Narrative: This is a 37-year-old male poorly controlled schizophrenic Vital Signs Temperature 98.0 F 02/02/18 18:43 Pulse Rate 103 02/02/18 18:43 Respiratory Rate 18 02/02/18 18:43 Blood Pressure 151/107 02/02/18 18:43 O2 Sat by Pulse Oximetry 95 02/02/18 18:43 Temperature 98.0 F 02/02/18 18:57 Pulse Rate 103 02/02/18 18:57 Respiratory Rate 18 02/02/18 18:57 Blood Pressure 151/107 02/02/18 18:57 O2 Sat by Pulse Oximetry 95 02/02/18 18:57 Oxygen Delivery Oxygen Delivery Room Air Medical Decision Making - [facility] Narrative Medical decision making narrative: This is a 37-year-old male who appears to be in decompensated schizophrenic. He is in need of psychiatric evaluation. I called psychiatry, but they had not seen the patient time of signout. He was signed out to Dr. Banks at 9 PM. - Lab Data Lab results reviewed: Yes I reviewed the patient's lab results. Lab results narrative: CBC shows leukocytosis 17.6 BMP was unremarkable UA showed 5-15 red cells Drug screen was negative Alcohol was negative Salicylate was negative Tylenol was negative Result diagrams: 02/02/18 19:22 02/02/18 19:22 Lab Results 02/02/18 02/02/18 02/02/18 Range/Units 19:22 19:22 19:50 WBC 12.6 H (4.3-11.1) K/mcL RBC 5.12 (4.19-5.50) M/mcL Hgb 15.5 (12.9-16.9) g/dL Hct 46.9 (37.5-50.1) % MCV 91.6 (83.0-100.0) fL MCH 30.3 (28.0-33.3) pg MCHC 33.0 (31.6-35.5) g/dL RDW 14.2 (11.5-14.5) % Plt Count 317 (140-400) K/mcL MPV 10.6 (9.4-12.4) fL Immature Gran % 0.3 (0-4) % Seg Neutrophils % 56.3 % Lymphocytes % 31.6 % Monocytes % 8.4 % Eosinophils % 2.8 % Basophils % 0.6 % Neutrophils # 7.1 (1.6-8.9) K/mcL Lymphocytes # 4.0 (0.6-4.6) K/mcL Monocytes # 1.1 (0.0-1.3) K/mcL Eosinophils # 0.4 (0.0-0.6) K/mcL Basophils # 0.1 (0.0-0.2) K/mcL Sodium 137 (136-145) mEq/L Potassium 3.5 (3.5-5.1) mEq/L Chloride 107 (98-107) mEq/L Carbon Dioxide 24 (23-29) mEq/L BUN 9 (6-20) mg/dL Creatinine 0.82 (0.70-1.30) mg/dL Est GFR ( Amer) > 60 (> 60) Est GFR (Non-Af Amer) > 60 (> 60) BUN/Creatinine Ratio 11 (6-26) Glucose 99 (70-105) mg/dL Calculated Osmolality 283 (280-300) Calcium 9.3 (8.6-10.3) mg/dL Urine Color Dark Yellow (Yellow) Urine Clarity Clear (Clear) Urine pH 6.0 (5.0-8.0) pH Units Ur Specific [place] 1.019 (1.010-1.025) Urine Protein 30 H (Neg-Trace) mg/dL Urine Glucose (UA) Normal (Normal) mg/dL Urine Ketones Trace H (Negative) mg/dL Urine Blood Small H (Negative) Urine Nitrite Negative (Negative) Urine Bilirubin Small H (Negative) Urine Urobilinogen Normal (Normal) mg/dL Ur Leukocyte Esterase Negative (Negative) Urine Microscopic RBC 5-15 H (0-3) per hpf Urine Microscopic WBC 0-3 (0-3) per hpf Ur Squamous Epith Cells Moderate H (None-Few) per lpf Urine Bacteria None Seen (None-Few) per hpf Hyaline Casts None Seen (None-Few) per lpf Salicylates < 2.5 L (15.0-30.0) mg/dL Urine Opiates Screen (Exurdo=898) ng/mL Acetaminophen < 10 L (10-20) mcg/mL Ur Barbiturates Screen (Spsvnp=440) ng/mL Ur Phencyclidine Scrn (Cutoff=25) ng/mL Ur Amphetamines Screen (Wbtqrz=9462) ng/mL U Benzodiazepines Scrn (Vjlqgm=831) ng/mL Urine Cocaine Screen (Cutoff= 300) ng/mL U Marijuana (THC) Screen (Cutoff = 50) ng/mL Ur Drug Screen Interp Ethyl Alcohol < 10 (Less than 10) mg/dL 02/02/18 Range/Units 19:50 WBC (4.3-11.1) K/mcL RBC (4.19-5.50) M/mcL Hgb (12.9-16.9) g/dL Hct (37.5-50.1) % MCV (83.0-100.0) fL MCH (28.0-33.3) pg MCHC (31.6-35.5) g/dL RDW (11.5-14.5) % Plt Count (140-400) K/mcL MPV (9.4-12.4) fL Immature Gran % (0-4) % Seg Neutrophils % % Lymphocytes % % Monocytes % % Eosinophils % % Basophils % % Neutrophils # (1.6-8.9) K/mcL Lymphocytes # (0.6-4.6) K/mcL Monocytes # (0.0-1.3) K/mcL Eosinophils # (0.0-0.6) K/mcL Basophils # (0.0-0.2) K/mcL Sodium (136-145) mEq/L Potassium (3.5-5.1) mEq/L Chloride (98-107) mEq/L Carbon Dioxide (23-29) mEq/L BUN (6-20) mg/dL Creatinine (0.70-1.30) mg/dL Est GFR ( Amer) (> 60) Est GFR (Non-Af Amer) (> 60) BUN/Creatinine Ratio (6-26) Glucose (70-105) mg/dL Calculated Osmolality (280-300) Calcium (8.6-10.3) mg/dL Urine Color (Yellow) Urine Clarity (Clear) Urine pH (5.0-8.0) pH Units Ur Specific [place] (1.010-1.025) Urine Protein (Neg-Trace) mg/dL Urine Glucose (UA) (Normal) mg/dL Urine Ketones (Negative) mg/dL Urine Blood (Negative) Urine Nitrite (Negative) Urine Bilirubin (Negative) Urine Urobilinogen (Normal) mg/dL Ur Leukocyte Esterase (Negative) Urine Microscopic RBC (0-3) per hpf Urine Microscopic WBC (0-3) per hpf Ur Squamous Epith Cells (None-Few) per lpf Urine Bacteria (None-Few) per hpf Hyaline Casts (None-Few) per lpf Salicylates (15.0-30.0) mg/dL Urine Opiates Screen Negative (Zfkplz=213) ng/mL Acetaminophen (10-20) mcg/mL Ur Barbiturates Screen Negative (Bvccya=917) ng/mL Ur Phencyclidine Scrn Negative (Cutoff=25) ng/mL Ur Amphetamines Screen Negative (Anihaw=4495) ng/mL U Benzodiazepines Scrn Negative (Ydjcai=106) ng/mL Urine Cocaine Screen Negative (Cutoff= 300) ng/mL U Marijuana (THC) Screen Negative (Cutoff = 50) ng/mL Ur Drug Screen Interp See Below Ethyl Alcohol (Less than 10) mg/dL Critical Care Time Critical Care Time: No
[2018-02-02 19:44] LABS: Hematocrit 46.9 % (37.5-50.1); Hemoglobin 15.5 g/dL (12.9-16.9); Immature Granulocytes % 0.3 % (0-4); Lymphocytes % 31.6 %; Mean Corpuscular Hemoglobin 30.3 pg (28.0-33.3); Mean Corpuscular Volume 91.6 fL (83.0-100.0); Mean Platelet Volume 10.6 fL (9.4-12.4); Platelet Count 317 K/mcL (140-400); Red Blood Count 5.12 M/mcL (4.19-5.50); Red Cell Distribution Width 14.2 % (11.5-14.5); Segmented Neutrophils % 56.3 %
[2018-02-02 19:45] LABS: Basophils # 0.1 K/mcL (0.0-0.2); Basophils % 0.6 %; Eosinophils # 0.4 K/mcL (0.0-0.6); Eosinophils % 2.8 %; Monocytes # 1.1 K/mcL (0.0-1.3); Monocytes % 8.4 %; Neutrophils # 7.1 K/mcL (1.6-8.9)
[2018-02-02 20:05] LABS: Acetaminophen < 10 mcg/mL (10-20); BUN/Creatinine Ratio 11 (6-26); Blood Urea Nitrogen 9 mg/dL (6-20); Calcium 9.3 mg/dL (8.6-10.3); Carbon Dioxide 24 mEq/L (23-29); Chloride 107 mEq/L (98-107); Ethanol < 10 mg/dL (Less than 10); Glucose 99 mg/dL (70-105); Osmolality,Calculated 283 (280-300); Potassium 3.5 mEq/L (3.5-5.1); Salicylate < 2.5 mg/dL (15.0-30.0); Sodium 137 mEq/L (136-145); eGFR For Non-African Americans > 60 (> 60)
[2018-02-02 20:05] LABS: Bilirubin,Urine Small (Negative); Blood,Urine Small (Negative); Clarity,Urine Clear (Clear); Color,Urine Dark Yellow (Yellow); Glucose,Urine (UA) Normal (Normal); Ketones,Urine Trace mg/dL (Negative); Leukocyte Esterase,Urine Negative (Negative); Nitrite,Urine Negative (Negative); Protein,Urine 30 mg/dL (Neg-Trace); Specific Gravity,Urine 1.019 (1.010-1.025); Urobilinogen,Urine Normal (Normal)
[2018-02-02 20:07] LABS: Bacteria,Urine None Seen per hpf (None-Few); Hyaline Casts,Urine None Seen per lpf (None-Few); Squamous Epithelial Cell,Urine Moderate per lpf (None-Few); WBC,Urine 0-3 per hpf (0-3)
[2018-02-02 20:11] LABS: Amphetamine Screen,Urine Negative ng/mL (Cutoff=1000); Barbiturate Screen,Urine Negative ng/mL (Cutoff=200); Benzodiazepines Screen,Urine Negative ng/mL (Cutoff=200); Cannabinoid Screen,Urine Negative ng/mL (Cutoff = 50); Cocaine Screen,Urine Negative ng/mL (Cutoff= 300); Opiate Screen,Urine Negative ng/mL (Cutoff=300); Phencyclidine Screen,Urine Negative ng/mL (Cutoff=25)
--- NOTE | 2018-02-02 23:26 | Emergency Department Note ---
START Narrative - START START: Patient was signed out to me by Dr. paulino. Plan was to have psychiatry evaluate him. They will admit him to their service. I have filled out his pink slipped.
[2018-02-03] MEDS ORDERED: Ibuprofen 400 MG TABLET PO PRN (00:57)
[2018-02-03] MEDS ORDERED: *HR* LORazepam 2 MG/ML VIAL IM PRN (00:57)
[2018-02-03] MEDS ORDERED: Haloperidol Lactate 5 MG/ML VIAL IM PRN (00:57)
[2018-02-03] MEDS ORDERED: MOM Conc 10 ML UD.LIQ PO PRN (00:57)
[2018-02-03] MEDS ORDERED: Mag Hydrox/Al Hydrox/Simeth 30 ML UDC PO PRN (00:57)
[2018-02-03] MEDS ORDERED: hydrOXYzine pamoate 25 MG CAPSULE PO ONE (01:23)
[2018-02-03] MEDS: traZODone 50 MG TABLET PO PRN (03:25)
--- NOTE | 2018-02-03 10:49 | Psychiatry History & Physical ---
Date of Encounter: 02/03/18 Time of Encounter: 10:43 History of Present Illness Patient Stated Chief Complaint: psychosis Medicare Admission Attestation: For traditional Medicare patients the provided hospital inpatient services are reasonable and necessary and in the case of services not specified as inpatient-only under 42 CFR 419.22 (n), that they are appropriately provided as inpatient services in accordance 42 CFR 412.3. For Critical Access Hospital the patient may reasonably be expected to be discharged or transferred to a hospital within 96 hours after admission to the Critical Access Hospital. Admitted From: Home Plans for Post Hospital Care: Home History of Present Illness: Mr. Porras is a 37 year old male who was brought to the ER by family secondary to psychosis and SI. Client is low functioning and very psychotic. Unable to meaningfully participate in interview today. Uncomfortable even entering the room with this freelance writer. When he did he sat in the far corner of the couch. He answered one question and then started responding to his voices, got up, and walked out. No real history available at this time. What is known is that client was taking Haldol at home (dose, frequency, and time course unknown). However, he apparently developed some EPS type symptoms and was taken off of it. Reportedly started on Invega instead but there is no verification of this. Has decompensated since med switch. Was reportedly endorsing SI at home. Here he is paranoid and experiencing command AH. Will try to verify meds but in meantime will start him on an atypical like Seroquel that does not have as strong of an EPS side effect profile. Past Med Surg Social Fam HX - Past Medical History Medical history: non-contributory, hypertension - Past Psychiatric History Psychiatric history: Reports: schizophrenia Family psychiatric history: Unknown Family History of Suicide: Unknown - Social History Smoking Status: Current every day smoker Smokeless Tobacco Status: No Alcohol use: occasionally Drug use: none - Family History Father Living Status: Still Living Hx Family Cardiac Disorders: Yes (Blood clots) Mother Living Status: Still Living Hx Family Endocrine Disorder: Yes (DM) Medications & Allergies Simvastatin [Zocor] 20 mg PO HS 01/01/18 [History] Tamsulosin [Flomax] 0.4 mg PO DAILY #20 cap.er.24h 01/01/18 [Rx] traZODone [TraZODone] 100 mg PO HS 01/01/18 [History] Losartan [Cozaar] 25 mg PO DAILY 30 Days #30 tablet 01/09/18 [Rx] Amantadine [Symmetrel] 100 mg PO BID 02/03/18 [History] Allergy/AdvReac Type Severity Reaction Status Date / Time No Known Allergies Allergy Verified 02/03/18 09:37 Review of Systems Constitutional: Denies: fever, chills, weakness, weight change Eyes: Denies: eye pain, vision change Ears, Nose, Throat: Denies: ear pain, throat pain, dental pain, hearing loss, congestion Cardiovascular: Denies: chest pain, palpitations, dyspnea on exertion Respiratory: Denies: cough, dyspnea, wheezes Gastrointestinal: Denies: abdominal pain, nausea, vomiting, diarrhea, constipation Genitourinary male: Denies: urgency, dysuria, frequency, genital lesions Musculoskeletal: Denies: joint swelling, joint pain Integumentary: Denies: rash, lesions, pruritus Neurological: Denies: headache, weakness, numbness, memory loss Endocrine: Denies: fatigue, heat or cold intolerance Hematologic/Lymphatic: Denies: easy bruising, lymphadenopathy Allergic/Immunologic: Denies: urticaria, itchy eyes Exam - HEENT Head exam IM: Present: atraumatic Eye exam IM: Present: conjunctival injection ENT exam IM: Present: normal exam - Neurological Neurological exam: Present: CN II-XII intact - Respiratory Respiratory exam IM: Present: CTAB - GI/Abdominal GI/Abdominal exam IM: Present: normal bowel sounds, soft. Absent: tenderness - Extremities Extremities exam IM: Present: full ROM - Skin Skin exam IM: Present: dry, warm - Constitutional Vitals: Temp Pulse Resp BP Pulse Ox 99.1 F 94 20 125/76 97 02/03/18 09:00 02/03/18 09:00 02/03/18 09:00 02/03/18 09:00 02/03/18 09:00 General appearance: obese - Musculoskeletal Gait: normal Station: relaxed Strength & Tone: normal for patient - Psychiatric Patient Orientation: Yes Other Level of alertness: Alert Behavior: anxious, withdrawn Psychomotor activity: Normal Eye Contact: Intense Contact Mood Description: Anxious Affect description: blunted Speech Volume: Normal Speech pattern: limited Language & Vocabulary: consistent with education Thought Process: Thought Blocking Thought Content: Yes Suicidal ideation, No Homicidal ideation, Yes Paranoid delusion Perceptual Disturbances: Yes Reacting to internal stimuli, Yes Auditory hallucinations Attention Span Ability: Unable to Focus, Unable to Sustain Attention Memory Description: Immediate Intact, Recent Impaired, Remote Impaired Patient Reliability: Not Reliable Historian Fund of knowledge: Yes below average Intelligence Estimate: Below Average Judgment: Limited Insight: Partial Results - Drug Levels and Toxicology Drug Levels and Toxicology: Drug Levels and Toxicity 02/02/18 02/02/18 19:22 19:50 Urine Opiates Screen Negative Acetaminophen < 10 L Ur Barbiturates Screen Negative Ur Phencyclidine Scrn Negative Ur Amphetamines Screen Negative U Benzodiazepines Scrn Negative Urine Cocaine Screen Negative U Marijuana (THC) Screen Negative Ethyl Alcohol < 10 - Labs Labs: Laboratory Last Values WBC 12.6 K/mcL (4.3-11.1) H 02/02/18 19:22 RBC 5.12 M/mcL (4.19-5.50) 02/02/18 19:22 Hgb 15.5 g/dL (12.9-16.9) 02/02/18 19:22 Hct 46.9 % (37.5-50.1) 02/02/18 19:22 MCV 91.6 fL (83.0-100.0) 02/02/18 19:22 MCH 30.3 pg (28.0-33.3) 02/02/18 19:22 MCHC 33.0 g/dL (31.6-35.5) 02/02/18 19:22 RDW 14.2 % (11.5-14.5) 02/02/18 19:22 Plt Count 317 K/mcL (140-400) 02/02/18 19:22 MPV 10.6 fL (9.4-12.4) 02/02/18 19:22 Immature Gran % 0.3 % (0-4) 02/02/18 19:22 Seg Neutrophils % 56.3 % 02/02/18 19:22 Lymphocytes % 31.6 % 02/02/18 19:22 Monocytes % 8.4 % 02/02/18 19:22 Eosinophils % 2.8 % 02/02/18 19:22 Basophils % 0.6 % 02/02/18 19:22 Neutrophils # 7.1 K/mcL (1.6-8.9) 02/02/18 19:22 Lymphocytes # 4.0 K/mcL (0.6-4.6) 02/02/18 19:22 Monocytes # 1.1 K/mcL (0.0-1.3) 02/02/18 19:22 Eosinophils # 0.4 K/mcL (0.0-0.6) 02/02/18 19:22 Basophils # 0.1 K/mcL (0.0-0.2) 02/02/18 19:22 Sodium 137 mEq/L (136-145) 02/02/18 19:22 Potassium 3.5 mEq/L (3.5-5.1) 02/02/18 19:22 Chloride 107 mEq/L (98-107) 02/02/18 19:22 Carbon Dioxide 24 mEq/L (23-29) 02/02/18 19:22 BUN 9 mg/dL (6-20) 02/02/18 19:22 Creatinine 0.82 mg/dL (0.70-1.30) 02/02/18 19:22 Est GFR ( Amer) > 60 (> 60) 02/02/18 19:22 Est GFR (Non-Af Amer) > 60 (> 60) 02/02/18 19:22 BUN/Creatinine Ratio 11 (6-26) 02/02/18 19:22 Glucose 99 mg/dL (70-105) 02/02/18 19:22 Calculated Osmolality 283 (280-300) 02/02/18 19:22 Calcium 9.3 mg/dL (8.6-10.3) 02/02/18 19:22 Urine Color Dark Yellow (Yellow) 02/02/18 19:50 Urine Clarity Clear (Clear) 02/02/18 19:50 Urine pH 6.0 pH Units (5.0-8.0) 02/02/18 19:50 Ur Specific [place] 1.019 (1.010-1.025) 02/02/18 19:50 Urine Protein 30 mg/dL (Neg-Trace) H 02/02/18 19:50 Urine Glucose (UA) Normal mg/dL (Normal) 02/02/18 19:50 Urine Ketones Trace mg/dL (Negative) H 02/02/18 19:50 Urine Blood Small (Negative) H 02/02/18 19:50 Urine Nitrite Negative (Negative) 02/02/18 19:50 Urine Bilirubin Small (Negative) H 02/02/18 19:50 Urine Urobilinogen Normal mg/dL (Normal) 02/02/18 19:50 Ur Leukocyte Esterase Negative (Negative) 02/02/18 19:50 Urine Microscopic RBC 5-15 per hpf (0-3) H 02/02/18 19:50 Urine Microscopic WBC 0-3 per hpf (0-3) 02/02/18 19:50 Ur Squamous Epith Cells Moderate per lpf (None-Few) H 02/02/18 19:50 Urine Bacteria None Seen per hpf (None-Few) 02/02/18 19:50 Hyaline Casts None Seen per lpf (None-Few) 02/02/18 19:50 Salicylates < 2.5 mg/dL (15.0-30.0) L 02/02/18 19:22 Urine Opiates Screen Negative ng/mL (Gunghq=211) 02/02/18 19:50 Acetaminophen < 10 mcg/mL (10-20) L 02/02/18 19:22 Ur Barbiturates Screen Negative ng/mL (Eejldr=588) 02/02/18 19:50 Ur Phencyclidine Scrn Negative ng/mL (Cutoff=25) 02/02/18 19:50 Ur Amphetamines Screen Negative ng/mL (Tlcowc=3819) 02/02/18 19:50 U Benzodiazepines Scrn Negative ng/mL (Erzaoa=629) 02/02/18 19:50 Urine Cocaine Screen Negative ng/mL (Cutoff= 300) 02/02/18 19:50 U Marijuana (THC) Screen Negative ng/mL (Cutoff = 50) 02/02/18 19:50 Ur Drug Screen Interp See Below 02/02/18 19:50 Ethyl Alcohol < 10 mg/dL (Less than 10) 02/02/18 19:22 Assessment and Plan (1) Paranoid schizophrenia Current visit: No Status: Acute Plan: Admit inpatient for safety and stabilization, Close observation, Suicide Precautions per unit protocol, Encourage participation in unit milieu, Group Therapy, Monitor sleep, Monitor appetite Risks, benefits, side effects, alternatives discussed w/pt: Yes Patient agreeable to treatment: Yes Plans for Post Hospital Care: Home Estimated Length of Stay (Days): 7
[2018-02-03] MEDS: traZODone 50 MG TABLET PO SCH (20:10)
[2018-02-03] MEDS: hydrOXYzine pamoate 25 MG CAPSULE PO PRN (20:10)
--- NOTE | 2018-02-04 09:54 | Psychiatry Progress Note ---
Date of Encounter: 02/04/18 Time of Encounter: 09:50 Subjective Interval history: Started on Seroquel last night. He is still very psychotic but he was able to come into the interview room and sit down today. He sat close to this underwriter solicitation director as opposed to sitting in the far corner of the couch like he did yesterday. Did not stay long but able to tolerate a few simple questions. Actually attempted to attend a group yesterday but he picked up the pencil, looked at the paper, immediately sat down the pencil and got up and left. Tried to leave the nursing station multiple times when being given evening meds. Linh needs a lot of assistance and redirection. He is running a low grade temp and he has a slightly elevated WBC count. Other labs are wnl. Client unable to really tell this underwriter solicitation director how he is feeling but agreed that he is having cold symptoms. Review of Systems Constitutional: Denies: fever, chills, weakness, weight change Eyes: Denies: eye pain, vision change Ears, Nose, Throat: Denies: ear pain, throat pain, dental pain, hearing loss, congestion Cardiovascular: Denies: chest pain, palpitations, dyspnea on exertion Respiratory: Denies: cough, dyspnea, wheezes Gastrointestinal: Denies: abdominal pain, nausea, vomiting, diarrhea, constipation Musculoskeletal: Denies: joint swelling, joint pain Neurological: Denies: headache, weakness, numbness, memory loss Results - Vital Signs Vital Signs: Temp Pulse Resp BP Pulse Ox 99.6 F 99 18 119/75 95 02/04/18 09:00 02/04/18 09:00 02/04/18 09:00 02/04/18 09:00 02/04/18 09:00 Assessment and Plan (1) Paranoid schizophrenia Current visit: No Status: Acute Plan: Continue hospitalization, Close observation, Suicide Precautions per unit protocol, Encourage participation in unit milieu, Group Therapy, Monitor sleep, Monitor appetite Risks, benefits, side effects, alternatives discussed w/pt: Yes Patient agreeable to treatment: Yes Consult Discharge Plan - Plan Referrals: Mikey Jaime MD [Primary Care Provider] - Psychiatry Exam - Constitutional Vitals: Temp Pulse Resp BP Pulse Ox 99.6 F 99 18 119/75 95 02/04/18 09:00 02/04/18 09:00 02/04/18 09:00 02/04/18 09:00 02/04/18 09:00 General appearance: obese - Musculoskeletal Gait: normal Station: relaxed Strength & Tone: normal for patient - Psychiatric Patient Orientation: Yes Person, Yes Place Level of alertness: Alert Behavior: calm, cooperative Psychomotor activity: Normal Eye Contact: Intense Contact Mood Description: Depressed Affect description: blunted Speech Volume: Normal Speech pattern: limited Language & Vocabulary: consistent with education Thought Process: Thought Blocking Thought Content: No Suicidal ideation, No Homicidal ideation, No Overt delusions Perceptual Disturbances: Yes Reacting to internal stimuli, Yes Auditory hallucinations Attention Span Ability: Unable to Focus, Unable to Sustain Attention Memory Description: Immediate Intact, Recent Impaired, Remote Impaired Patient Reliability: Not Reliable Historian Fund of knowledge: Yes below average Intelligence Estimate: Below Average Judgment: Limited Insight: Minimal
[2018-02-04] MEDS: *HR* LORazepam 1 MG TABLET PO PRN (18:44)
[2018-02-04] MEDS ORDERED: Ziprasidone injection 20 MG/ML VIAL IM PRN (19:47)
[2018-02-04] MEDS: traZODone 50 MG TABLET PO SCH (21:20)
--- NOTE | 2018-02-05 13:26 | Psychiatry Progress Note ---
Date of Encounter: 02/05/18 Time of Encounter: 13:22 Subjective Interval history: Client is still very ill. Able to tolerate sitting and speaking with this parts data writer now but his responses to questions are very delayed. At times he takes so long to answer he forgets to say anything. Actively responding to IS. Admits the AH are "loud." Now denying SI but unable to care for self in current state. Woke up during safety checks last night and started screaming. Continues to be fearful/paranoid. Tried to shower yesterday but did not use soap. Disorganized. Seems to be tolerating Seroquel-this medication is far less likely to cause EPS than Haldol. Tried to refuse it yesterday but agreed to take it after mother encouraged him during visiting hours. Will increase dose today. Review of Systems Constitutional: Denies: fever, chills, weakness, weight change Eyes: Denies: eye pain, vision change Ears, Nose, Throat: Denies: ear pain, throat pain, dental pain, hearing loss, congestion Cardiovascular: Denies: chest pain, palpitations, dyspnea on exertion Respiratory: Denies: cough, dyspnea, wheezes Gastrointestinal: Denies: abdominal pain, nausea, vomiting, diarrhea, constipation Musculoskeletal: Denies: joint swelling, joint pain Neurological: Denies: headache, weakness, numbness, memory loss Results - Vital Signs Vital Signs: Temp Pulse Resp BP Pulse Ox 98.4 F 104 20 164/104 95 02/05/18 09:00 02/05/18 09:00 02/05/18 09:00 02/05/18 09:00 02/05/18 09:00 Assessment and Plan (1) Paranoid schizophrenia Current visit: No Status: Acute Plan: Continue hospitalization, Close observation, Suicide Precautions per unit protocol, Encourage participation in unit milieu, Group Therapy, Monitor sleep, Monitor appetite Risks, benefits, side effects, alternatives discussed w/pt: Yes Patient agreeable to treatment: Yes Consult Discharge Plan - Plan Referrals: Mikey Jaime MD [Non-Partnered Physician] - Psychiatry Exam - Constitutional Vitals: Temp Pulse Resp BP Pulse Ox 98.4 F 104 20 164/104 95 02/05/18 09:00 02/05/18 09:00 02/05/18 09:00 02/05/18 09:00 02/05/18 09:00 General appearance: obese - Musculoskeletal Gait: normal Station: relaxed Strength & Tone: normal for patient - Psychiatric Patient Orientation: Yes Person, Yes Place Level of alertness: Alert Behavior: calm, cooperative Psychomotor activity: Normal Eye Contact: Intense Contact Mood Description: Anxious Affect description: blunted Speech Volume: Normal Speech pattern: limited Language & Vocabulary: consistent with education Thought Process: Thought Blocking Thought Content: No Suicidal ideation, No Homicidal ideation, Yes Paranoid delusion Perceptual Disturbances: Yes Reacting to internal stimuli, Yes Auditory hallucinations Attention Span Ability: Unable to Focus, Unable to Sustain Attention Memory Description: Immediate Intact, Recent Impaired, Remote Intact Patient Reliability: Not Reliable Historian Fund of knowledge: Yes below average Intelligence Estimate: Below Average Judgment: Limited Insight: Partial
[2018-02-05] MEDS: traZODone 50 MG TABLET PO SCH (19:59)
[2018-02-05] MEDS: traZODone 50 MG TABLET PO PRN (19:59)
[2018-02-05] MEDS: hydrOXYzine pamoate 25 MG CAPSULE PO PRN (19:59)
[2018-02-06] MEDS ORDERED: *HR* LORazepam 0.5 MG TABLET PO ONE (14:07)
--- NOTE | 2018-02-06 14:13 | Psychiatry Progress Note ---
Date of Encounter: 02/06/18 Time of Encounter: 13:45 Subjective Interval history: Pt is a 47 yo,, male, who presents for Schizophrenia . Pt noted that he is hearing command hallucinations telling him not to talk to me. Pt noted "I really need this to stop. Pt denied any side effects to current medications, pt agreed to start risperidone 2 mg PO BID for mood. Pt noted he felt safe and comfortable on the unit and will tell staff if things get bad again. Pt was in agreement with current treatment plan. Pt noted that he is doing alright today. Pt noted he slept not much last night. Pt noted his appetite is decreased. Pt rated his depression a 8, on a scale of zero to ten with ten being the worst and zero being none. Pt rate his anxiety a 8, on the same scale. Pt denied any visual hallucinations. Pt noted auditory hallucinations as previously stated. Pt denied any current thoughts to harm himself or anyone else. No TD noted, AIMS=0 1.Interval hx 2.Continue current medications 3.Review current labs 4.Pt had an opportunity to ask questions and discuss current treatment plan. 5.Supportive therapy was provided 6.Pt encouraged to consider group or individual therapy 7.Pt was in agreement with treatment plan. 8.Pt was educated on the risks benefits and side effects of current medications. Review of Systems Constitutional: Denies: fever, chills, weakness, weight change Eyes: Denies: eye pain, vision change Ears, Nose, Throat: Denies: ear pain, throat pain, dental pain, hearing loss, congestion Cardiovascular: Denies: chest pain, palpitations, dyspnea on exertion Respiratory: Denies: cough, dyspnea, wheezes Gastrointestinal: Denies: abdominal pain, nausea, vomiting, diarrhea, constipation Musculoskeletal: Denies: joint swelling, joint pain Neurological: Denies: headache, weakness, numbness, memory loss Psychiatric: Reports: abnormal sleep pattern, auditory hallucinations, visual hallucinations, difficulty concentrating Results - Vital Signs Vital Signs: Temp Pulse Resp BP Pulse Ox 98.1 F 96 22 166/93 93 02/06/18 09:00 02/06/18 09:00 02/06/18 09:00 02/06/18 09:00 02/06/18 09:00 Assessment and Plan (1) Paranoid schizophrenia Current visit: No Status: Acute Plan: Continue hospitalization, Close observation, Suicide Precautions per unit protocol, Encourage participation in unit milieu, Group Therapy, Monitor sleep, Monitor appetite Risks, benefits, side effects, alternatives discussed w/pt: Yes Patient agreeable to treatment: Yes Consult Discharge Plan - Plan Referrals: Mikey Jaime MD [Non-Partnered Physician] - Psychiatry Exam - Constitutional Vitals: Temp Pulse Resp BP Pulse Ox 98.1 F 96 22 166/93 93 02/06/18 09:00 02/06/18 09:00 02/06/18 09:00 02/06/18 09:00 02/06/18 09:00 General appearance: age & developmentally appropriate, well-groomed, well- nourished - Musculoskeletal Gait: normal Station: relaxed Strength & Tone: normal for patient - Psychiatric Patient Orientation: Yes Person, Yes Time, Yes Place Level of alertness: Alert Behavior: calm, cooperative, suspicious, withdrawn Psychomotor activity: Slowed Eye Contact: Minimal Contact Mood Description: Anxious Affect description: congruent with mood, flat Speech Volume: Normal Speech pattern: normal tone, fluent, slowed Language & Vocabulary: consistent with education Thought Process: Thought Blocking Thought Content: No Suicidal ideation, No Homicidal ideation, No Overt delusions, Yes Paranoid delusion Perceptual Disturbances: Yes Auditory hallucinations, Yes Visual hallucinations Attention Span Ability: Capable of Focused Attention Memory Description: Grossly Intact Patient Reliability: Questionable Historian Fund of knowledge: Yes abstraction ability, Yes aware of current events Intelligence Estimate: Average Judgment: Poor Insight: Minimal
[2018-02-06] MEDS ORDERED: risperiDONE 1 MG TABLET PO ONE (14:33)
[2018-02-06] MEDS: Nicotine 21 MG PATCH.TD24 TD SCH (16:35)
[2018-02-06] MEDS: traZODone 50 MG TABLET PO SCH (20:09)
[2018-02-06] MEDS: risperiDONE 1 MG TABLET PO SCH (20:09)
[2018-02-07] MEDS: risperiDONE 1 MG TABLET PO SCH ×2 (09:24→20:34)
[2018-02-07] MEDS: Nicotine 21 MG PATCH.TD24 TD SCH (09:24)
--- NOTE | 2018-02-07 12:08 | Psychiatry Progress Note ---
Date of Encounter: 02/07/18 Time of Encounter: 12:00 Subjective Interval history: Pt is a 47 yo,, male, who presents for Schizophrenia . Pt noted that he is still hearing command hallucinations however have reduced some. Pt noted "I do feel a little better. Pt denied any side effects to current medications. Pt noted he felt safe and comfortable on the unit and will tell staff if things get bad again. Pt was in agreement with current treatment plan. Pt noted that he is doing alright today. Pt noted he slept not much last night. Pt noted his appetite is decreased. Pt rated his depression a 5, on a scale of zero to ten with ten being the worst and zero being none. Pt rate his anxiety a 5, on the same scale. Pt denied any visual hallucinations. Pt noted auditory hallucinations as previously stated. Pt denied any current thoughts to harm himself or anyone else. No TD noted, AIMS=0 1.Interval hx 2.Continue current medications 3.Review current labs 4.Pt had an opportunity to ask questions and discuss current treatment plan. 5.Supportive therapy was provided 6.Pt encouraged to consider group or individual therapy 7.Pt was in agreement with treatment plan. 8.Pt was educated on the risks benefits and side effects of current medications. Review of Systems Constitutional: Denies: fever, chills, weakness, weight change Eyes: Denies: eye pain, vision change Ears, Nose, Throat: Denies: ear pain, throat pain, dental pain, hearing loss, congestion Cardiovascular: Denies: chest pain, palpitations, dyspnea on exertion Respiratory: Denies: cough, dyspnea, wheezes Gastrointestinal: Denies: abdominal pain, nausea, vomiting, diarrhea, constipation Musculoskeletal: Denies: joint swelling, joint pain Neurological: Denies: headache, weakness, numbness, memory loss Psychiatric: Reports: abnormal sleep pattern, auditory hallucinations, visual hallucinations, difficulty concentrating Results - Vital Signs Vital Signs: Temp Pulse Resp BP Pulse Ox 98.3 F 101 20 141/98 95 02/07/18 09:00 02/07/18 09:00 02/07/18 09:00 02/07/18 09:00 02/07/18 09:00 Assessment and Plan (1) Paranoid schizophrenia Current visit: No Status: Acute Plan: Continue hospitalization, Close observation, Suicide Precautions per unit protocol, Encourage participation in unit milieu, Group Therapy, Monitor sleep, Monitor appetite Risks, benefits, side effects, alternatives discussed w/pt: Yes Patient agreeable to treatment: Yes Consult Discharge Plan - Plan Referrals: Mikey Jaime MD [Non-Partnered Physician] - Psychiatry Exam - Constitutional Vitals: Temp Pulse Resp BP Pulse Ox 98.3 F 101 20 141/98 95 02/07/18 09:00 02/07/18 09:00 02/07/18 09:00 02/07/18 09:00 02/07/18 09:00 General appearance: age & developmentally appropriate, well-groomed, well- nourished - Musculoskeletal Gait: normal Station: relaxed Strength & Tone: normal for patient - Psychiatric Patient Orientation: Yes Person, Yes Time, Yes Place Level of alertness: Alert Behavior: calm, cooperative Psychomotor activity: Normal Eye Contact: Maintains Eye Contact Mood Description: Depressed Affect description: congruent with mood, flat Speech Volume: Normal Speech pattern: normal rate, normal rhythm, normal tone, fluent, spontaneous Language & Vocabulary: consistent with education Thought Process: Linear, Goal Oriented Thought Content: No Suicidal ideation, No Homicidal ideation, No Overt delusions Perceptual Disturbances: Yes Auditory hallucinations, Yes Visual hallucinations Attention Span Ability: Capable of Focused Attention Memory Description: Grossly Intact Patient Reliability: Questionable Historian Fund of knowledge: Yes abstraction ability, Yes aware of current events Intelligence Estimate: Average Judgment: Poor Insight: Minimal
[2018-02-07] MEDS ORDERED: cloNIDine HCl 0.1 MG TABLET PO STA (20:22)
[2018-02-07] MEDS: traZODone 50 MG TABLET PO SCH (20:35)
[2018-02-07] MEDS: *HR* LORazepam 1 MG TABLET PO PRN (21:48)
[2018-02-08] MEDS: Nicotine 21 MG PATCH.TD24 TD SCH (08:57)
[2018-02-08] MEDS: risperiDONE 1 MG TABLET PO SCH (08:58)
[2018-02-08] MEDS ORDERED: cloNIDine HCl 0.1 MG TABLET PO ONE (09:57)
[2018-02-08] MEDS ORDERED: cloNIDine HCl 0.1 MG TABLET PO PRN (11:34)
--- NOTE | 2018-02-08 11:34 | Psychiatry Progress Note ---
Date of Encounter: 02/08/18 Time of Encounter: 11:30 Subjective Interval history: Pt is a 47 yo,, male, who presents for Schizophrenia. Pt continues to note that he is still hearing command hallucinations however have reduced some. Pt noted "I am feeling a little better Pt denied any side effects to current medications. Pt noted he felt safe and comfortable on the unit and will tell staff if things get bad again. Pt was in agreement with current treatment plan. Pt noted that he is doing alright today. Pt noted he slept not much last night. Pt noted his appetite is decreased. Pt rated his depression a 5, on a scale of zero to ten with ten being the worst and zero being none. Pt rate his anxiety a 5, on the same scale. Pt denied any visual hallucinations. Pt noted auditory hallucinations as previously stated. Pt denied any current thoughts to harm himself or anyone else. No TD noted, AIMS=0 1.Interval hx 2.Continue current medications 3.Review current labs 4.Pt had an opportunity to ask questions and discuss current treatment plan. 5.Supportive therapy was provided 6.Pt encouraged to consider group or individual therapy 7.Pt was in agreement with treatment plan. 8.Pt was educated on the risks benefits and side effects of current medications. 9. Med consult pending for BP 10. Start PRN Clonidine 0.1 mg PO Q6H PRN for htn, hold of SBP less than 100, DBP less than 60 or pulse less than 60. Review of Systems Constitutional: Denies: fever, chills, weakness, weight change Eyes: Denies: eye pain, vision change Ears, Nose, Throat: Denies: ear pain, throat pain, dental pain, hearing loss, congestion Cardiovascular: Denies: chest pain, palpitations, dyspnea on exertion Respiratory: Denies: cough, dyspnea, wheezes Gastrointestinal: Denies: abdominal pain, nausea, vomiting, diarrhea, constipation Musculoskeletal: Denies: joint swelling, joint pain Neurological: Denies: headache, weakness, numbness, memory loss Psychiatric: Reports: abnormal sleep pattern, auditory hallucinations, visual hallucinations, difficulty concentrating Results - Vital Signs Vital Signs: Temp Pulse Resp BP Pulse Ox 98.9 F 112 24 162/109 98 02/08/18 09:00 02/08/18 09:00 02/08/18 09:00 02/08/18 09:00 02/07/18 20:31 Assessment and Plan (1) Paranoid schizophrenia Current visit: No Status: Acute Plan: Continue hospitalization, Close observation, Suicide Precautions per unit protocol, Encourage participation in unit milieu, Group Therapy, Monitor sleep, Monitor appetite Risks, benefits, side effects, alternatives discussed w/pt: Yes Patient agreeable to treatment: Yes Consult Discharge Plan - Plan Referrals: Mikey Jaime MD [Non-Partnered Physician] - Psychiatry Exam - Constitutional Vitals: Temp Pulse Resp BP Pulse Ox 98.9 F 112 24 162/109 98 02/08/18 09:00 02/08/18 09:00 02/08/18 09:00 02/08/18 09:00 02/07/18 20:31 General appearance: age & developmentally appropriate, well-groomed, well- nourished - Musculoskeletal Gait: normal Station: relaxed Strength & Tone: normal for patient - Psychiatric Patient Orientation: Yes Person, Yes Time, Yes Place Level of alertness: Alert Behavior: calm, cooperative Psychomotor activity: Normal Eye Contact: Minimal Contact Mood Description: Anxious Affect description: congruent with mood, flat Speech Volume: Normal Speech pattern: normal rate, normal rhythm, normal tone, fluent, spontaneous Language & Vocabulary: consistent with education Thought Process: Thought Blocking Thought Content: No Suicidal ideation, No Homicidal ideation, No Overt delusions Perceptual Disturbances: Yes Auditory hallucinations, No Visual hallucinations Attention Span Ability: Capable of Sustained Attention Memory Description: Grossly Intact Patient Reliability: Reliable Historian Fund of knowledge: Yes abstraction ability, Yes aware of current events Intelligence Estimate: Average Judgment: Poor Insight: Partial
[2018-02-08 13:22] LABS: Basophils # 0.1 K/mcL (0.0-0.2); Basophils % 0.4 %; Eosinophils # 0.1 K/mcL (0.0-0.6); Eosinophils % 0.6 %; Hematocrit 48.8 % (37.5-50.1); Hemoglobin 16.3 g/dL (12.9-16.9); Immature Granulocytes % 0.4 % (0-4); Lymphocytes # 3.4 K/mcL (0.6-4.6); Lymphocytes % 23.9 %; Mean Corpuscular HGB Conc 33.4 g/dL (31.6-35.5); Mean Corpuscular Hemoglobin 30.9 pg (28.0-33.3); Mean Corpuscular Volume 92.6 fL (83.0-100.0); Monocytes # 0.5 K/mcL (0.0-1.3); Monocytes % 3.7 %; Neutrophils # 10.1 K/mcL (1.6-8.9); Platelet Count 343 K/mcL (140-400); Red Blood Count 5.27 M/mcL (4.19-5.50); Red Cell Distribution Width 13.5 % (11.5-14.5)
[2018-02-08 13:42] LABS: Alanine Aminotransferase 19 Units/L (7-52); Albumin 4.7 g/dL (3.5-5.7); Albumin/Globulin Ratio 1.5 (1.1-2.2); Alkaline Phosphatase 69 Units/L (34-104); Aspartate Amino Transferase 20 Units/L (13-39); BUN/Creatinine Ratio 13 (6-26); Bilirubin,Total 0.7 mg/dL (0.3-1.0); Blood Urea Nitrogen 10 mg/dL (6-20); Calcium 9.9 mg/dL (8.6-10.3); Carbon Dioxide 22 mEq/L (23-29); Chloride 105 mEq/L (98-107); Creatine Kinase 115 Units/L (30-223); Globulin 3.1 g/dL (2.4-3.5); Glucose 174 mg/dL (70-105); Osmolality,Calculated 285 (280-300); Potassium 3.9 mEq/L (3.5-5.1); Sodium 136 mEq/L (136-145); Total Protein 7.8 g/dL (6.4-8.9); eGFR For Non-African Americans > 60 (> 60)
[2018-02-08] MEDS: *HR* LORazepam 1 MG TABLET PO PRN (20:50)
[2018-02-08] MEDS: RisperiDAL 3 MG TABLET PO SCH (20:50)
[2018-02-08] MEDS: hydrOXYzine pamoate 25 MG CAPSULE PO PRN (20:50)
[2018-02-08] MEDS: traZODone 50 MG TABLET PO SCH (20:50)
[2018-02-09] MEDS: Nicotine 21 MG PATCH.TD24 TD SCH (08:51)
[2018-02-09] MEDS: RisperiDAL 3 MG TABLET PO SCH ×2 (08:51→20:53)
--- NOTE | 2018-02-09 12:49 | Psychiatry Progress Note ---
Date of Encounter: 02/09/18 Time of Encounter: 12:45 Subjective Interval history: Client familiar to this check writer from last weekend. Still very ill. Reports SI comes and goes. However, still receiving command AH daily. Voices tell him not to trust staff here. He has been more cooperative with direction such as taking medications and getting in the shower. However, he is still actively responding to voices. Last night he got up at 4am and asked staff for his toothbrush. He then went to the pay phone, picked up the front end software developer, dialed a couple of numbers and hung up. He repeated this behavior a couple of times before walking back to his room. Currently taking 6mg of Risperdal a day. Seems to be tolerating it ok. Will likely need to go up on dose over the weekend or look at adding another antipsychotic. prison may want to consider CLozapine. Review of Systems Constitutional: Denies: fever, chills, weakness, weight change Eyes: Denies: eye pain, vision change Ears, Nose, Throat: Denies: ear pain, throat pain, dental pain, hearing loss, congestion Cardiovascular: Denies: chest pain, palpitations, dyspnea on exertion Respiratory: Denies: cough, dyspnea, wheezes Gastrointestinal: Denies: abdominal pain, nausea, vomiting, diarrhea, constipation Musculoskeletal: Denies: joint swelling, joint pain Neurological: Denies: headache, weakness, numbness, memory loss Psychiatric: Reports: abnormal sleep pattern, auditory hallucinations, visual hallucinations, difficulty concentrating Results - Vital Signs Vital Signs: Temp Pulse Resp BP Pulse Ox 99.2 F 120 21 149/88 94 02/08/18 21:00 02/08/18 21:00 02/08/18 21:00 02/08/18 21:00 02/08/18 21:00 - Labs Labs: Laboratory Results - last 24 hr 02/08/18 02/08/18 12:42 12:42 WBC 14.2 H RBC 5.27 Hgb 16.3 Hct 48.8 MCV 92.6 MCH 30.9 MCHC 33.4 RDW 13.5 Plt Count 343 MPV 11.0 Immature Gran % 0.4 Seg Neutrophils % 71.0 Lymphocytes % 23.9 Monocytes % 3.7 Eosinophils % 0.6 Basophils % 0.4 Neutrophils # 10.1 H Lymphocytes # 3.4 Monocytes # 0.5 Eosinophils # 0.1 Basophils # 0.1 Sodium 136 Potassium 3.9 Chloride 105 Carbon Dioxide 22 L BUN 10 Creatinine 0.80 Est GFR ( Amer) > 60 Est GFR (Non-Af Amer) > 60 BUN/Creatinine Ratio 13 Glucose 174 H Calculated Osmolality 285 Calcium 9.9 Total Bilirubin 0.7 AST 20 ALT 19 Alkaline Phosphatase 69 Creatine Kinase 115 Serum Total Protein 7.8 Albumin 4.7 Globulin 3.1 Albumin/Globulin Ratio 1.5 Assessment and Plan (1) Paranoid schizophrenia Current visit: No Status: Acute Plan: Continue hospitalization, Close observation, Suicide Precautions per unit protocol, Encourage participation in unit milieu, Group Therapy, Monitor sleep, Monitor appetite Risks, benefits, side effects, alternatives discussed w/pt: Yes Patient agreeable to treatment: Yes Consult Discharge Plan - Plan Referrals: Mikey Jaime MD [Non-Partnered Physician] - Psychiatry Exam - Constitutional Vitals: Temp Pulse Resp BP Pulse Ox 99.2 F 120 21 149/88 94 02/08/18 21:00 02/08/18 21:00 02/08/18 21:00 02/08/18 21:00 02/08/18 21:00 General appearance: unkempt, disheveled - Musculoskeletal Gait: normal Station: relaxed Strength & Tone: normal for patient - Psychiatric Patient Orientation: Yes Person, Yes Time, Yes Place Level of alertness: Alert Behavior: calm, cooperative Psychomotor activity: Normal Eye Contact: Intense Contact Mood Description: Depressed Affect description: flat Speech Volume: Normal Speech pattern: limited Language & Vocabulary: consistent with education Thought Process: Linear Thought Content: Yes Suicidal ideation, No Homicidal ideation, Yes Paranoid delusion Perceptual Disturbances: Yes Reacting to internal stimuli, Yes Auditory hallucinations Attention Span Ability: Unable to Focus, Unable to Sustain Attention Memory Description: Grossly Intact Patient Reliability: Not Reliable Historian Fund of knowledge: Yes below average Intelligence Estimate: Below Average Judgment: Limited Insight: Minimal
[2018-02-09] MEDS: traZODone 50 MG TABLET PO SCH (20:54)
[2018-02-10] MEDS: *HR* LORazepam 1 MG TABLET PO PRN (01:35)
[2018-02-10] MEDS: Nicotine 21 MG PATCH.TD24 TD SCH (08:29)
[2018-02-10] MEDS: RisperiDAL 3 MG TABLET PO SCH (08:29)
[2018-02-10] MEDS: Propranolol LA (24 HR) 60 MG CAP.SA.24H PO SCH (08:29)
--- NOTE | 2018-02-10 11:17 | Psychiatry Progress Note ---
Date of Encounter: 02/10/18 Time of Encounter: 11:13 Subjective Interval history: Continues to be very ill. Voices are distressing to him. Took prns last night after he became anxious from . Will try and increase Risperdal today. Likely needs CLozapine. If no improvement soon may look at starting that in here. Doubt client will be amenable to all of the blood draws but his symptoms are severe. Walked in and out of he room multiple times while talking to this com writer today. Unable to answer questions appropriately. Talking about a scar on his hand and how he got it from destroying a pentagram. Review of Systems Constitutional: Denies: fever, chills, weakness, weight change Eyes: Denies: eye pain, vision change Ears, Nose, Throat: Denies: ear pain, throat pain, dental pain, hearing loss, congestion Cardiovascular: Denies: chest pain, palpitations, dyspnea on exertion Respiratory: Denies: cough, dyspnea, wheezes Gastrointestinal: Denies: abdominal pain, nausea, vomiting, diarrhea, constipation Musculoskeletal: Denies: joint swelling, joint pain Neurological: Denies: headache, weakness, numbness, memory loss Psychiatric: Reports: abnormal sleep pattern, auditory hallucinations, visual hallucinations, difficulty concentrating Results - Vital Signs Vital Signs: Temp Pulse Resp BP Pulse Ox 97.9 F 114 18 167/95 96 02/10/18 09:00 02/10/18 09:00 02/10/18 09:00 02/10/18 09:00 02/10/18 09:00 Assessment and Plan (1) Paranoid schizophrenia Current visit: No Status: Acute Plan: Continue hospitalization, Close observation, Suicide Precautions per unit protocol, Encourage participation in unit milieu, Group Therapy, Monitor sleep, Monitor appetite Risks, benefits, side effects, alternatives discussed w/pt: Yes Patient agreeable to treatment: Yes Consult Discharge Plan - Plan Referrals: Mikey Jaime MD [Non-Partnered Physician] - Psychiatry Exam - Constitutional Vitals: Temp Pulse Resp BP Pulse Ox 97.9 F 114 18 167/95 96 02/10/18 09:00 02/10/18 09:00 02/10/18 09:00 02/10/18 09:00 02/10/18 09:00 General appearance: obese - Musculoskeletal Gait: slow Station: relaxed Strength & Tone: normal for patient - Psychiatric Patient Orientation: Yes Person, Yes Time, Yes Place Level of alertness: Alert Behavior: calm, cooperative Psychomotor activity: Normal Eye Contact: Intense Contact Mood Description: Depressed, Anxious Affect description: blunted Speech Volume: Normal Speech pattern: limited Language & Vocabulary: consistent with education Thought Process: Thought Blocking Thought Content: No Suicidal ideation, No Homicidal ideation, Yes Overt delusions, Yes Paranoid delusion Perceptual Disturbances: Yes Reacting to internal stimuli, Yes Auditory hallucinations, Yes Visual hallucinations Attention Span Ability: Unable to Focus, Unable to Sustain Attention Memory Description: Immediate Intact, Recent Impaired, Remote Intact Patient Reliability: Not Reliable Historian Fund of knowledge: Yes below average Intelligence Estimate: Below Average Judgment: Limited Insight: Minimal
[2018-02-10] MEDS: risperiDONE 1 MG, risperiDONE 3 MG PO SCH (20:35)
[2018-02-10] MEDS: traZODone 50 MG TABLET PO SCH (20:36)
[2018-02-10] MEDS ORDERED: risperiDONE 1 MG TABLET PO SCH (21:00)
[2018-02-11] MEDS: hydrOXYzine pamoate 25 MG CAPSULE PO PRN (00:49)
[2018-02-11] MEDS: traZODone 50 MG TABLET PO PRN (00:49)
[2018-02-11] MEDS: Propranolol LA (24 HR) 60 MG CAP.SA.24H PO SCH (08:38)
[2018-02-11] MEDS: risperiDONE 1 MG, risperiDONE 3 MG PO SCH ×2 (08:38→20:47)
[2018-02-11] MEDS: Nicotine 21 MG PATCH.TD24 TD SCH (08:39)
[2018-02-11] MEDS ORDERED: *HR* Labetalol 20 MG/4 ML SYRINGE IVP PRN (08:54)
[2018-02-11] MEDS: amLODIPine 5 MG TABLET PO SCH (10:33)
[2018-02-11] MEDS: cloNIDine HCl 0.1 MG TABLET PO SCH ×3 (10:33→20:46)
--- NOTE | 2018-02-11 10:44 | Internal Medicine Consult Note ---
Date of Encounter: 02/11/18 Time of Encounter: 09:30 - Assessment and plan (1) Hypertension Current Visit: Yes Status: Acute Assessment and plan: Likely aggravated by ongoing psychosis Last dose of clonidine given on 02/09. will schedule clonidine 0.1mg TID add norvasc 5mg, d/c losartan also noted that patient is started on propanolol ?presumably due to akathisia/anxiety can titrate up to 160-320mg/day if necessary. IF being used for anti-hypertensive, would recommend switching to coreg 12.5mg BID and titrate up Qualifiers: Hypertension type: unspecified Qualified Code(s): I10 - Essential (primary) hypertension (2) Tachycardia Current Visit: Yes Status: Acute Assessment and plan: as above (3) Paranoid schizophrenia Current Visit: No Status: Acute Assessment and plan: per psych - Time Spent With Patient Total time spent is greater than 50% in coordination of care (as documented) at patient's floor/unit and/or counseling patient: Internal Medicine - CN: HPI - Data of Consult Patient: known to practice within the last 3 years Consult date: 02/11/18 Requesting Physician: Carly Mariee MD - Consult Narrative Reason for consult: tachycardia, HTN History of present illness: Mr. Porras is a 37 year old male with history of hypertension, schizophrenia, wa s admitted on 02/03 due to psychosis and suicidal ideation. Hospitalists were consulted due to poorly controlled hypertension and tachycardia. Due to patient's underlying psychosis, he is not able to provide any meaningful history. When asked about chest pain, headache, blurring of vision, SOB, he said "all of the above". Appears that he continues to experience severe psychotic symptoms based on chart review on previous progress notes. His blood pressure trend is around 140-180 systolic and 95-120 diastolic. There is a reported pulse rate of 224 but no EKG correlate to document what kind of tachycardia it was. EKG obtained this morning shows NSR with ventricular rate of 103. Currently in HR of 96-108. Past Med Surg Social Fam HX - Past Medical History Medical history: non-contributory, hypertension Psychiatric history: schizophrenia - Past Surgical History Surgical History: non-contributory Additional surgical history: Hand sx, ear tubes - Social History Smoking Status: Current every day smoker Smokeless Tobacco Status: No Alcohol use: occasionally Drug use: none - Family History Father Living Status: Still Living Hx Family Cardiac Disorders: Yes (Blood clots) Mother Living Status: Still Living Hx Family Endocrine Disorder: Yes (DM) ROS unobtainable: due to mental status Internal Medicine - CN: Meds Simvastatin [Zocor] 20 mg PO HS 01/01/18 [History] Tamsulosin [Flomax] 0.4 mg PO DAILY #20 cap.er.24h 01/01/18 [Rx] traZODone [TraZODone] 100 mg PO HS 01/01/18 [History] Amantadine [Symmetrel] 100 mg PO BID 02/03/18 [History] Allergy/AdvReac Type Severity Reaction Status Date / Time No Known Allergies Allergy Verified 02/03/18 09:37 Hospitalist - CN: Exam - Constitutional Vitals: Temp Pulse Resp BP Pulse Ox 98.4 F 224 22 171/105 95 02/11/18 08:54 02/11/18 08:54 02/11/18 08:54 02/11/18 08:54 02/11/18 08:54 Exam: General: Alert, flat affect noted. Not in acute distress. HEENT:EOM, pupils equal, round and reactive. Cardiovascular:Normal S1 & S2, No JVD. Pulse regular and tachycardic. No lower extremity swelling Lungs: clear to auscultation, no wheezes/rales Abdomen:Soft, non-tender, no rigidity. Extremities:No deformity or swelling Neurological: Non-focal, ambulating well in hallway Skin:Normal color, no rash, no lesions. Pulses:Carotid and radial pulses normal +2. Rest of the physical exam is non contributory Internal Medicine - CN: Reslt - Labs CBC & Chem 7: 02/08/18 12:42 02/08/18 12:42 Consult Discharge Plan - Plan Referrals: Mikey Jaime MD [Non-Partnered Physician] -
--- NOTE | 2018-02-11 10:47 | Psychiatry Progress Note ---
Date of Encounter: 02/11/18 Time of Encounter: 10:39 Subjective Interval history: Client is still very psychotic. Actively responding to IS at all times. 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 States he was hearing his family. Hospitalist saw him this morning due to elevated HR and blood pressure and client told him his name was Zofia (his sister's name) and that there was a demon inside him. According to machine Kodak's HR was 224 this morning. Manually it was 180. This is concerning given that a Beta Valeria was just started yesterday. Kodak is too ill to endorse any physical complaints but he is steady on his feet. No evidence of any cogwheeling. Afebrile. However, due to concern for NMS will check a CBC and EKG. Follow up on Hospitalist recommendations. Risperdal was just titrated up to 8mg a day yesterday. He is not responding clinically to this medication. Given the seriousness of his symptoms it is probably time to start Clozapine. Clozapine could make tachycardia worse so will need to monitor him closely for this. Reviewed risks and benefits of taking Clozapine today. Kodak does not have have a legal guardian but he consented to the medication. Aware he will need weekly blood draws. Will wait and see what Hospitalist recommends but if not contraindicated will likely start Clozapine tomorrow. Review of Systems Constitutional: Denies: fever, chills, weakness, weight change Eyes: Denies: eye pain, vision change Ears, Nose, Throat: Denies: ear pain, throat pain, dental pain, hearing loss, congestion Cardiovascular: Reports: other Respiratory: Denies: cough, dyspnea, wheezes Gastrointestinal: Denies: abdominal pain, nausea, vomiting, diarrhea, constipation Musculoskeletal: Denies: joint swelling, joint pain Neurological: Denies: headache, weakness, numbness, memory loss Psychiatric: Reports: abnormal sleep pattern, auditory hallucinations, visual hallucinations, difficulty concentrating Results - Vital Signs Vital Signs: Temp Pulse Resp BP Pulse Ox 98.4 F 224 22 171/105 95 02/11/18 08:54 02/11/18 08:54 02/11/18 08:54 02/11/18 08:54 02/11/18 08:54 Assessment and Plan (1) Paranoid schizophrenia Current visit: No Status: Acute Plan: Continue hospitalization, Close observation, Suicide Precautions per unit protocol, Encourage participation in unit milieu, Group Therapy, Monitor sleep, Monitor appetite Risks, benefits, side effects, alternatives discussed w/pt: Yes Patient agreeable to treatment: Yes Consult Discharge Plan - Plan Referrals: Mikey Jaime MD [Non-Partnered Physician] - Psychiatry Exam - Constitutional Vitals: Temp Pulse Resp BP Pulse Ox 98.4 F 224 22 171/105 95 02/11/18 08:54 02/11/18 08:54 02/11/18 08:54 02/11/18 08:54 02/11/18 08:54 General appearance: unkempt - Musculoskeletal Gait: normal Station: relaxed Strength & Tone: normal for patient - Psychiatric Patient Orientation: Yes Person, Yes Place Level of alertness: Alert Behavior: calm, cooperative Psychomotor activity: Normal Eye Contact: Intense Contact Mood Description: Other Affect description: flat Speech Volume: Normal Speech pattern: limited Language & Vocabulary: consistent with education Thought Process: Thought Blocking Thought Content: No Suicidal ideation, No Homicidal ideation, Yes Overt delusions, Yes Paranoid delusion Perceptual Disturbances: Yes Reacting to internal stimuli, Yes Auditory hallucinations, Yes Visual hallucinations Attention Span Ability: Unable to Focus, Unable to Sustain Attention Memory Description: Immediate Intact, Recent Impaired, Remote Intact Patient Reliability: Questionable Historian Fund of knowledge: Yes below average Intelligence Estimate: Below Average Judgment: Limited Insight: Partial
[2018-02-11 10:48] LABS: Basophils # 0.1 K/mcL (0.0-0.2); Basophils % 0.6 %; Eosinophils # 0.2 K/mcL (0.0-0.6); Eosinophils % 1.3 %; Hematocrit 46.7 % (37.5-50.1); Hemoglobin 15.6 g/dL (12.9-16.9); Immature Granulocytes % 0.3 % (0-4); Lymphocytes # 2.6 K/mcL (0.6-4.6); Lymphocytes % 20.7 %; Mean Corpuscular HGB Conc 33.4 g/dL (31.6-35.5); Mean Corpuscular Hemoglobin 30.9 pg (28.0-33.3); Mean Corpuscular Volume 92.5 fL (83.0-100.0); Mean Platelet Volume 10.8 fL (9.4-12.4); Monocytes # 0.7 K/mcL (0.0-1.3); Monocytes % 5.6 %; Neutrophils # 8.9 K/mcL (1.6-8.9); Platelet Count 368 K/mcL (140-400); Red Blood Count 5.05 M/mcL (4.19-5.50); Red Cell Distribution Width 13.7 % (11.5-14.5); Segmented Neutrophils % 71.5 %
[2018-02-11] MEDS: traZODone 50 MG TABLET PO SCH (20:47)
[2018-02-11] MEDS: Ziprasidone 20 MG CAPSULE PO PRN (23:33)
[2018-02-11] MEDS: *HR* LORazepam 1 MG TABLET PO PRN (23:33)
[2018-02-12] MEDS: Nicotine 21 MG PATCH.TD24 TD SCH (08:54)
[2018-02-12] MEDS: cloNIDine HCl 0.1 MG TABLET PO SCH ×3 (08:55→20:46)
[2018-02-12] MEDS: risperiDONE 1 MG, risperiDONE 3 MG PO SCH (08:55)
[2018-02-12] MEDS: Propranolol LA (24 HR) 60 MG CAP.SA.24H PO SCH (08:55)
[2018-02-12] MEDS: amLODIPine 5 MG TABLET PO SCH (08:55)
--- NOTE | 2018-02-12 10:07 | Internal Med Progress Note ---
Hospitalist Progress Note - Encounter Date of Encounter: 02/12/18 Time of Encounter: 08:00 - Subjective Interval History: Blood pressure much better controlled. Denies any chest pain, headache, or blurring of vision. - Exam Vitals: Temp Pulse Resp BP Pulse Ox 97.8 F 99 18 130/82 96 02/11/18 21:00 02/11/18 21:00 02/11/18 21:00 02/11/18 21:00 02/11/18 21:00 Exam: General: Alert, flat affect noted. Not in acute distress. Cardiovascular:Normal S1 & S2, No JVD. Pulse regular and tachycardic. No lower extremity swelling Lungs: clear to auscultation, no wheezes/rales Abdomen:Soft, non-tender, no rigidity. Neurological: Non-focal, ambulating well in hallway - Assessment and Plan (1) Hypertension Current Visit: Yes Status: Acute Assessment and Plan: Likely aggravated by ongoing psychosis Last dose of clonidine given on 02/09. better controlled on scheduled clonidine 0.1mgTID and norvasc 5mg. Continue can titrate up clonidine to 0.2mg TID and norvasc to 10mg if BP increases also noted that patient is started on propanolol ?presumably due to akathisia/anxiety can titrate up to 160-320mg/day if necessary, defer to psych will sign off, please call with questions (2) Tachycardia Current Visit: Yes Status: Resolved Assessment and Plan: as above, resolved (3) Paranoid schizophrenia Current Visit: No Status: Acute Assessment and Plan: per psych - Time Spent with Patient Total time spent is greater than 50% in coordination of care (as documented) at patient's floor/unit and/or counseling patient: Plan of Care Discussed with: nurse Internal Medicine: Result - Labs CBC & Chem 7: 02/11/18 10:24 02/08/18 12:42 Labs: Short CBC 02/11/18 Range/Units 10:24 WBC 12.4 H (4.3-11.1) K/mcL Hgb 15.6 (12.9-16.9) g/dL Hct 46.7 (37.5-50.1) % Plt Count 368 (140-400) K/mcL Neutrophils # 8.9 (1.6-8.9) K/mcL - VTE Reasons for not Prescribing Prophylaxis: Treatment not Indicated - Low risk for VTE Consult Discharge Plan - Plan Referrals: Mikey Jaime MD [Non-Partnered Physician] - (1) Hypertension Qualifiers: Hypertension type: unspecified Qualified Code(s): I10 - Essential (primary) hypertension
--- NOTE | 2018-02-12 12:02 | Psychiatry Progress Note ---
Date of Encounter: 02/12/18 Time of Encounter: 11:58 Subjective Interval history: Seen by hospitalist yesterday. Appreciate input. Started on scheduled Clonidine and Norvasc. Blood pressure and HR much improved today. CBC wnl except for slightly elevated WBC count. Will go ahead and start Clozapine tonight along with Risperdal wean. Client aware of risks, benefits, weekly lab draws, and length of time it will take to titrate dose and stabilize. Will need to follow lipids, blood sugars, and weights. Will also start a stool softener prophylactically. Check CRP and Troponins in a few days due to risk of Clozapine induced myocarditis. Remains very psychotic. Pacing in room last ni ght and attempted to leave unit with visitors. Not trying to escape but distracted by psychosis. Responds to redirection. Review of Systems Constitutional: Denies: fever, chills, weakness, weight change Eyes: Denies: eye pain, vision change Ears, Nose, Throat: Denies: ear pain, throat pain, dental pain, hearing loss, congestion Cardiovascular: Denies: chest pain, palpitations, dyspnea on exertion Respiratory: Denies: cough, dyspnea, wheezes Gastrointestinal: Denies: abdominal pain, nausea, vomiting, diarrhea, constipation Musculoskeletal: Denies: joint swelling, joint pain Neurological: Denies: headache, weakness, numbness, memory loss Psychiatric: Reports: abnormal sleep pattern, auditory hallucinations, visual hallucinations, difficulty concentrating Results - Vital Signs Vital Signs: Temp Pulse Resp BP Pulse Ox 98.1 F 84 22 147/99 98 02/12/18 09:00 02/12/18 09:00 02/12/18 09:00 02/12/18 09:00 02/12/18 09:00 Assessment and Plan (1) Paranoid schizophrenia Current visit: No Status: Acute Plan: Continue hospitalization, Close observation, Suicide Precautions per unit protocol, Encourage participation in unit milieu, Group Therapy, Monitor sleep, Monitor appetite Risks, benefits, side effects, alternatives discussed w/pt: Yes Patient agreeable to treatment: Yes Consult Discharge Plan - Plan Referrals: Mikey Jaime MD [Non-Partnered Physician] - Psychiatry Exam - Constitutional Vitals: Temp Pulse Resp BP Pulse Ox 98.1 F 84 22 147/99 98 02/12/18 09:00 02/12/18 09:00 02/12/18 09:00 02/12/18 09:00 02/12/18 09:00 General appearance: obese - Musculoskeletal Gait: normal Station: relaxed Strength & Tone: normal for patient - Psychiatric Patient Orientation: Yes Person, Yes Time, Yes Place Level of alertness: Alert Behavior: calm, cooperative Psychomotor activity: Normal Eye Contact: Intense Contact Mood Description: Depressed Affect description: flat Speech Volume: Normal Speech pattern: limited Language & Vocabulary: consistent with education Thought Process: Thought Blocking Thought Content: No Suicidal ideation, No Homicidal ideation, Yes Paranoid delusion Perceptual Disturbances: Yes Reacting to internal stimuli, Yes Auditory hallucinations, Yes Visual hallucinations Attention Span Ability: Unable to Focus, Unable to Sustain Attention Memory Description: Immediate Intact, Recent Impaired, Remote Intact Patient Reliability: Not Reliable Historian Fund of knowledge: Yes below average Intelligence Estimate: Below Average Judgment: Limited Insight: Partial
[2018-02-12] MEDS: Ziprasidone 20 MG CAPSULE PO PRN (16:15)
[2018-02-12] MEDS: hydrOXYzine pamoate 25 MG CAPSULE PO PRN (16:15)
[2018-02-12] MEDS: *HR* LORazepam 1 MG TABLET PO PRN (16:15)
[2018-02-12] MEDS: traZODone 50 MG TABLET PO SCH (20:45)
[2018-02-12] MEDS: RisperiDAL 3 MG TABLET PO SCH (20:46)
[2018-02-12] MEDS ORDERED: cloZAPine 25 MG TABLET PO SCH (21:00)
[2018-02-13] MEDS: amLODIPine 5 MG TABLET PO SCH (08:40)
[2018-02-13] MEDS: RisperiDAL 3 MG TABLET PO SCH ×2 (08:40→20:59)
[2018-02-13] MEDS: Nicotine 21 MG PATCH.TD24 TD SCH (08:41)
[2018-02-13] MEDS: Propranolol LA (24 HR) 60 MG CAP.SA.24H PO SCH (08:41)
[2018-02-13] MEDS: cloNIDine HCl 0.1 MG TABLET PO SCH ×3 (08:41→21:00)
--- NOTE | 2018-02-13 10:08 | Psychiatry Progress Note ---
Date of Encounter: 02/13/18 Time of Encounter: 09:30 Subjective Interval history: Pt is a 47 yo,, male, who presents for Schizophrenia. Pt noted he feels he is doing better. Pt noted exacerbation of hypersexuality towards female staff. Pt denied any side effects to current medications. Pt noted he felt safe and comfortable on the unit and will tell staff if things get bad again. Pt was in agreement with current treatment plan. Pt noted that he is doing alright today. Pt noted he slept not much last night. Pt noted his appetite is decreased. Pt rated his depression a 1, on a scale of zero to ten with ten being the worst and zero being none. Pt rate his anxiety a 1, on the same scale. Pt denied any visual hallucinations. Pt noted auditory hallucinations yet reduced from previously. Pt denied any current thoughts to harm himself or anyone else. No TD noted, AIMS=0 1.Interval hx 2.Continue current medications 3.Review current labs 4.Pt had an opportunity to ask questions and discuss current treatment plan. 5.Supportive therapy was provided 6.Pt encouraged to consider group or individual therapy 7.Pt was in agreement with treatment plan. 8.Pt was educated on the risks benefits and side effects of current medications. 9. Increase Clozapine to 50 mg PO QHS for mood 10. Start Depakote xr 1000 mg PO QHS Review of Systems Constitutional: Denies: fever, chills, weakness, weight change Eyes: Denies: eye pain, vision change Ears, Nose, Throat: Denies: ear pain, throat pain, dental pain, hearing loss, congestion Cardiovascular: Denies: chest pain, palpitations, dyspnea on exertion Respiratory: Denies: cough, dyspnea, wheezes Gastrointestinal: Denies: abdominal pain, nausea, vomiting, diarrhea, constipation Musculoskeletal: Denies: joint swelling, joint pain Neurological: Denies: headache, weakness, numbness, memory loss Psychiatric: Reports: abnormal sleep pattern, auditory hallucinations, visual hallucinations, difficulty concentrating Results - Vital Signs Vital Signs: Temp Pulse Resp BP Pulse Ox 98.3 F 95 16 128/85 97 02/13/18 09:00 02/13/18 09:00 02/13/18 09:00 02/13/18 09:00 02/13/18 09:00 Assessment and Plan (1) Paranoid schizophrenia Current visit: No Status: Acute Plan: Continue hospitalization, Close observation, Suicide Precautions per unit protocol, Encourage participation in unit milieu, Group Therapy, Monitor sleep, Monitor appetite Risks, benefits, side effects, alternatives discussed w/pt: Yes Patient agreeable to treatment: Yes Consult Discharge Plan - Plan Referrals: Mikey Jaime MD [Non-Partnered Physician] - Psychiatry Exam - Constitutional Vitals: Temp Pulse Resp BP Pulse Ox 98.3 F 95 16 128/85 97 02/13/18 09:00 02/13/18 09:00 02/13/18 09:00 02/13/18 09:00 02/13/18 09:00 General appearance: age & developmentally appropriate, well-groomed, well- nourished - Musculoskeletal Gait: normal Station: relaxed Strength & Tone: normal for patient - Psychiatric Patient Orientation: Yes Person, Yes Time, Yes Place Level of alertness: Alert Behavior: calm, cooperative Psychomotor activity: Normal Eye Contact: Maintains Eye Contact Mood Description: Euthymic/stable Affect description: congruent with mood, blunted, flat Speech Volume: Normal Speech pattern: normal rate, fluent, monotone Language & Vocabulary: consistent with education Thought Process: Thought Blocking Thought Content: No Suicidal ideation, No Homicidal ideation, No Overt delusions, Yes Paranoid delusion Perceptual Disturbances: Yes Auditory hallucinations, Yes Visual hallucinations Attention Span Ability: Capable of Focused Attention Memory Description: Grossly Intact Patient Reliability: Questionable Historian Fund of knowledge: Yes abstraction ability, Yes aware of current events Intelligence Estimate: Average Judgment: Poor Insight: Minimal
[2018-02-13 11:41] LABS: Alanine Aminotransferase 19 Units/L (7-52); Albumin 4.3 g/dL (3.5-5.7); Albumin/Globulin Ratio 1.7 (1.1-2.2); Alkaline Phosphatase 63 Units/L (34-104); Aspartate Amino Transferase 16 Units/L (13-39); BUN/Creatinine Ratio 19 (6-26); Bilirubin,Total 0.5 mg/dL (0.3-1.0); Blood Urea Nitrogen 16 mg/dL (6-20); Calcium 9.1 mg/dL (8.6-10.3); Carbon Dioxide 28 mEq/L (23-29); Chloride 105 mEq/L (98-107); Globulin 2.5 g/dL (2.4-3.5); Glucose 120 mg/dL (70-105); Osmolality,Calculated 288 (280-300); Sodium 138 mEq/L (136-145); Total Protein 6.8 g/dL (6.4-8.9); eGFR For Non-African Americans > 60 (> 60)
--- NOTE | 2018-02-13 16:56 | Electrocardiograph Report ---
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
[2018-02-13] MEDS: traZODone 50 MG TABLET PO SCH (20:59)
[2018-02-13] MEDS: cloZAPine 25 MG TABLET PO SCH (20:59)
[2018-02-13] MEDS: Divalproex (24 HR) 500 MG TABLET PO SCH (20:59)
[2018-02-14] MEDS: Propranolol LA (24 HR) 60 MG CAP.SA.24H PO SCH (08:52)
[2018-02-14] MEDS: RisperiDAL 3 MG TABLET PO SCH ×2 (08:52→20:48)
[2018-02-14] MEDS: cloNIDine HCl 0.1 MG TABLET PO SCH ×3 (08:52→20:48)
[2018-02-14] MEDS: amLODIPine 5 MG TABLET PO SCH (08:53)
[2018-02-14] MEDS: Nicotine 21 MG PATCH.TD24 TD SCH (08:54)
--- NOTE | 2018-02-14 11:53 | Psychiatry Progress Note ---
Date of Encounter: 02/14/18 Time of Encounter: 11:35 Subjective Interval history: Pt is a 47 yo,, male, who presents for Schizophrenia. Pt noted he feels he is doing better. Pt and staff note significant improvement today. Pt denied any side effects to current medications. Pt noted he felt safe and comfortable on the unit and will tell staff if things get bad again. Pt was in agreement with current treatment plan. Pt noted that he is doing alright today. Pt noted he slept not much last night. Pt noted his appetite is decreased. Pt rated his depression a 1, on a scale of zero to ten with ten being the worst and zero being none. Pt rate his anxiety a 1, on the same scale. Pt denied any visual hallucinations. Pt noted auditory hallucinations yet reduced from previously. Pt denied any current thoughts to harm himself or anyone else. No TD noted, AIMS=0 1.Interval hx 2.Continue current medications 3.Review current labs 4.Pt had an opportunity to ask questions and discuss current treatment plan. 5.Supportive therapy was provided 6.Pt encouraged to consider group or individual therapy 7.Pt was in agreement with treatment plan. 8.Pt was educated on the risks benefits and side effects of current medications. 9. Continue to titrate clozapine and reduce risperidone Review of Systems Constitutional: Denies: fever, chills, weakness, weight change Eyes: Denies: eye pain, vision change Ears, Nose, Throat: Denies: ear pain, throat pain, dental pain, hearing loss, congestion Cardiovascular: Denies: chest pain, palpitations, dyspnea on exertion Respiratory: Denies: cough, dyspnea, wheezes Gastrointestinal: Denies: abdominal pain, nausea, vomiting, diarrhea, constipation Musculoskeletal: Denies: joint swelling, joint pain Neurological: Denies: headache, weakness, numbness, memory loss Psychiatric: Reports: abnormal sleep pattern, auditory hallucinations, visual hallucinations, difficulty concentrating Results - Vital Signs Vital Signs: Temp Pulse Resp BP Pulse Ox 98.8 F 102 20 145/92 96 02/14/18 08:46 02/14/18 08:46 02/14/18 08:46 02/14/18 08:46 02/14/18 08:46 Assessment and Plan (1) Paranoid schizophrenia Current visit: No Status: Acute Plan: Continue hospitalization, Close observation, Suicide Precautions per unit protocol, Encourage participation in unit milieu, Group Therapy, Monitor sleep, Monitor appetite Risks, benefits, side effects, alternatives discussed w/pt: Yes Patient agreeable to treatment: Yes Consult Discharge Plan - Plan Referrals: Mikey Jaime MD [Non-Partnered Physician] - Psychiatry Exam - Constitutional Vitals: Temp Pulse Resp BP Pulse Ox 98.8 F 102 20 145/92 96 02/14/18 08:46 02/14/18 08:46 02/14/18 08:46 02/14/18 08:46 02/14/18 08:46 General appearance: age & developmentally appropriate, well-groomed, well-nouris hed - Musculoskeletal Gait: normal Station: relaxed Strength & Tone: normal for patient - Psychiatric Patient Orientation: Yes Person, Yes Time, Yes Place Level of alertness: Alert Behavior: calm, cooperative Psychomotor activity: Normal Eye Contact: Minimal Contact Mood Description: Euthymic/stable Affect description: congruent with mood, flat Speech Volume: Normal Speech pattern: normal rate, normal rhythm, fluent, spontaneous, monotone Language & Vocabulary: consistent with education Thought Process: Linear, Goal Oriented, Thought Blocking Thought Content: No Suicidal ideation, No Homicidal ideation, No Overt delusions, Yes Paranoid delusion Perceptual Disturbances: No Auditory hallucinations, No Visual hallucinations Attention Span Ability: Capable of Focused Attention Memory Description: Grossly Intact Patient Reliability: Questionable Historian Fund of knowledge: Yes abstraction ability, Yes aware of current events Intelligence Estimate: Average Judgment: Poor Insight: Minimal
[2018-02-14] MEDS: cloZAPine 25 MG TABLET PO SCH (20:47)
[2018-02-14] MEDS: traZODone 50 MG TABLET PO SCH (20:48)
[2018-02-14] MEDS: Divalproex (24 HR) 500 MG TABLET PO SCH (20:48)
[2018-02-15] MEDS: Propranolol LA (24 HR) 60 MG CAP.SA.24H PO SCH (08:45)
[2018-02-15] MEDS: Nicotine 21 MG PATCH.TD24 TD SCH (08:45)
[2018-02-15] MEDS: amLODIPine 5 MG TABLET PO SCH (08:45)
[2018-02-15] MEDS: RisperiDAL 3 MG TABLET PO SCH (08:45)
[2018-02-15] MEDS: cloNIDine HCl 0.1 MG TABLET PO SCH ×3 (08:45→20:53)
--- NOTE | 2018-02-15 12:13 | Psychiatry Progress Note ---
Date of Encounter: 02/15/18 Time of Encounter: 11:30 Subjective Interval history: Pt is a 47 yo,, male, who presents for Schizophrenia. Pt noted he feels he is doing better. Pt and staff note significant improvement today. Pt denied any side effects to current medications. Pt noted he felt safe and comfortable on the unit and will tell staff if things get bad again. Pt was in agreement with current treatment plan. Pt noted that he is doing alright today. Pt noted he slept not much last night. Pt noted his appetite is decreased. Pt rated his depression a 1, on a scale of zero to ten with ten being the worst and zero being none. Pt rate his anxiety a 1, on the same scale. Pt denied any visual hallucinations. Pt noted auditory hallucinations yet reduced from previously. Pt denied any current thoughts to harm himself or anyone else. No TD noted, AIMS=0 1.Interval hx 2.Continue current medications 3.Review current labs 4.Pt had an opportunity to ask questions and discuss current treatment plan. 5.Supportive therapy was provided 6.Pt encouraged to consider group or individual therapy 7.Pt was in agreement with treatment plan. 8.Pt was educated on the risks benefits and side effects of current medications. 9. Continue to titrate clozapine and reduce risperidone Review of Systems Constitutional: Denies: fever, chills, weakness, weight change Eyes: Denies: eye pain, vision change Ears, Nose, Throat: Denies: ear pain, throat pain, dental pain, hearing loss, congestion Cardiovascular: Denies: chest pain, palpitations, dyspnea on exertion Respiratory: Denies: cough, dyspnea, wheezes Gastrointestinal: Denies: abdominal pain, nausea, vomiting, diarrhea, constipation Musculoskeletal: Denies: joint swelling, joint pain Neurological: Denies: headache, weakness, numbness, memory loss Psychiatric: Reports: abnormal sleep pattern, auditory hallucinations, visual hallucinations, difficulty concentrating Results - Vital Signs Vital Signs: Temp Pulse Resp BP Pulse Ox 98.8 F 103 18 148/90 94 02/15/18 09:00 02/15/18 09:00 02/15/18 09:00 02/15/18 09:00 02/15/18 09:00 Assessment and Plan (1) Paranoid schizophrenia Current visit: No Status: Acute Plan: Continue hospitalization, Close observation, Suicide Precautions per unit protocol, Encourage participation in unit milieu, Group Therapy, Monitor sleep, Monitor appetite Risks, benefits, side effects, alternatives discussed w/pt: Yes Patient agreeable to treatment: Yes Consult Discharge Plan - Plan Referrals: Mikey Jaime MD [Non-Partnered Physician] - Psychiatry Exam - Constitutional Vitals: Temp Pulse Resp BP Pulse Ox 98.8 F 103 18 148/90 94 02/15/18 09:00 02/15/18 09:00 02/15/18 09:00 02/15/18 09:00 02/15/18 09:00 General appearance: age & developmentally appropriate, well-groomed, well-nouris hed - Musculoskeletal Gait: normal Station: relaxed Strength & Tone: normal for patient - Psychiatric Patient Orientation: Yes Person, Yes Time, Yes Place Level of alertness: Alert Behavior: calm, cooperative, suspicious Psychomotor activity: Normal Eye Contact: Minimal Contact Mood Description: Euthymic/stable Affect description: congruent with mood, flat Speech Volume: Normal Speech pattern: normal rate, normal rhythm, normal tone, fluent, spontaneous Language & Vocabulary: consistent with education Thought Process: Linear, Goal Oriented, Thought Blocking Thought Content: No Suicidal ideation, No Homicidal ideation, No Overt delusions, Yes Paranoid delusion Perceptual Disturbances: Yes Auditory hallucinations, No Visual hallucinations Attention Span Ability: Capable of Focused Attention Memory Description: Grossly Intact Patient Reliability: Questionable Historian Fund of knowledge: Yes abstraction ability, Yes aware of current events Intelligence Estimate: Average Judgment: Poor Insight: Minimal
[2018-02-15] MEDS: cloZAPine 100 MG TABLET PO SCH (20:53)
[2018-02-15] MEDS: risperiDONE 1 MG TABLET PO SCH (20:53)
[2018-02-15] MEDS: traZODone 50 MG TABLET PO SCH (20:53)
[2018-02-15] MEDS: Divalproex (24 HR) 500 MG TABLET PO SCH (20:53)
--- NOTE | 2018-02-16 09:31 | Psychiatry Progress Note ---
Date of Encounter: 02/16/18 Time of Encounter: 08:15 Subjective Interval history: Pt is a 37 yo,, male, who presents for Schizophrenia. Pt noted he feels he is doing better. Pt and staff note significant improvement today, the voices have reduced a lot. Pt denied any side effects to current medications. Pt noted he felt safe and comfortable on the unit. Pt remains in agreement with current treatment plan. Pt noted that he is doing alright today. Pt noted he slept not much last night. Pt noted his appetite is better. Pt rated his depression a 0, on a scale of zero to ten with ten being the worst and zero being none. Pt rate his anxiety a 0, on the same scale. Pt denied any visual hallucinations. Pt noted auditory hallucinations yet continues to reduce slowly. Pt denied any current thoughts to harm himself or anyone else. No TD noted, AIMS=0 1.Interval hx 2.Continue current medications 3.Review current labs 4.Pt had an opportunity to ask questions and discuss current treatment plan. 5.Supportive therapy was provided 6.Pt encouraged to consider group or individual therapy 7.Pt was in agreement with treatment plan. 8.Pt was educated on the risks benefits and side effects of current medications. 9. Continue to titrate clozapine and reduce risperidone Review of Systems Constitutional: Denies: fever, chills, weakness, weight change Eyes: Denies: eye pain, vision change Ears, Nose, Throat: Denies: ear pain, throat pain, dental pain, hearing loss, congestion Cardiovascular: Denies: chest pain, palpitations, dyspnea on exertion Respiratory: Denies: cough, dyspnea, wheezes Gastrointestinal: Denies: abdominal pain, nausea, vomiting, diarrhea, constipation Musculoskeletal: Denies: joint swelling, joint pain Neurological: Denies: headache, weakness, numbness, memory loss Psychiatric: Reports: abnormal sleep pattern, auditory hallucinations, visual hallucinations, difficulty concentrating Results - Vital Signs Vital Signs: Temp Pulse Resp BP Pulse Ox 98.4 F 87 20 152/95 96 02/15/18 20:33 02/15/18 20:33 02/15/18 20:33 02/15/18 20:33 02/15/18 20:33 Assessment and Plan (1) Paranoid schizophrenia Current visit: No Status: Acute Plan: Continue hospitalization, Close observation, Suicide Precautions per unit protocol, Encourage participation in unit milieu, Group Therapy, Monitor sleep, Monitor appetite Risks, benefits, side effects, alternatives discussed w/pt: Yes Patient agreeable to treatment: Yes Consult Discharge Plan - Plan Referrals: Mikey Jaime MD [Non-Partnered Physician] - Psychiatry Exam - Constitutional Vitals: Temp Pulse Resp BP Pulse Ox 98.4 F 87 20 152/95 96 02/15/18 20:33 02/15/18 20:33 02/15/18 20:33 02/15/18 20:33 02/15/18 20:33 General appearance: age & developmentally appropriate, well-groomed, well- nourished - Musculoskeletal Gait: normal Station: relaxed Strength & Tone: normal for patient - Psychiatric Patient Orientation: Yes Person, Yes Time, Yes Place Level of alertness: Alert Behavior: calm, cooperative Psychomotor activity: Normal Eye Contact: Maintains Eye Contact Mood Description: Euthymic/stable Affect description: congruent with mood, flat Speech Volume: Normal Speech pattern: normal rhythm, fluent, spontaneous, slowed, monotone Language & Vocabulary: consistent with education Thought Process: Linear, Goal Oriented, Thought Blocking Thought Content: No Suicidal ideation, No Homicidal ideation, No Overt delusions, Yes Paranoid delusion Perceptual Disturbances: Yes Auditory hallucinations, No Visual hallucinations Attention Span Ability: Capable of Focused Attention Memory Description: Grossly Intact Patient Reliability: Questionable Historian Fund of knowledge: Yes abstraction ability, Yes aware of current events Intelligence Estimate: Average Judgment: Poor Insight: Partial
[2018-02-16] MEDS: amLODIPine 5 MG TABLET PO SCH (10:23)
[2018-02-16] MEDS: cloNIDine HCl 0.1 MG TABLET PO SCH ×3 (10:23→20:22)
[2018-02-16] MEDS: risperiDONE 1 MG TABLET PO SCH ×2 (10:24→20:22)
[2018-02-16] MEDS: Propranolol LA (24 HR) 60 MG CAP.SA.24H PO SCH (10:24)
[2018-02-16] MEDS: Nicotine 21 MG PATCH.TD24 TD SCH (10:24)
[2018-02-16] MEDS: Divalproex (24 HR) 500 MG TABLET PO SCH (20:21)
[2018-02-16] MEDS: traZODone 50 MG TABLET PO PRN (20:22)
[2018-02-16] MEDS: hydrOXYzine pamoate 25 MG CAPSULE PO PRN (20:22)
[2018-02-16] MEDS: traZODone 50 MG TABLET PO SCH (20:22)
[2018-02-16] MEDS: cloZAPine 100 MG TABLET PO SCH (20:22)
[2018-02-17] MEDS: amLODIPine 5 MG TABLET PO SCH (09:31)
[2018-02-17] MEDS: Nicotine 21 MG PATCH.TD24 TD SCH (09:31)
[2018-02-17] MEDS: cloNIDine HCl 0.1 MG TABLET PO SCH ×3 (09:32→21:43)
[2018-02-17] MEDS: Propranolol LA (24 HR) 60 MG CAP.SA.24H PO SCH (09:32)
[2018-02-17] MEDS: risperiDONE 1 MG TABLET PO SCH ×2 (09:32→21:44)
--- NOTE | 2018-02-17 10:24 | Psychiatry Progress Note ---
Date of Encounter: 02/17/18 Time of Encounter: 09:15 Subjective Interval history: eduardo is a 37 yo,, male, who presents for Schizophrenia. Pt noted he feels he is doing better. Pt and staff note significant improvement today, the voices have reduced a lot. Pt denied any side effects to current medications. Pt noted he felt safe and comfortable on the unit. Pt remains in agreement with current treatment plan. Pt noted that he is doing pretty good today. Pt noted he slept not much last night. Pt noted his appetite is better. Pt rated his depression a 0, on a scale of zero to ten with ten being the worst and zero being none. Pt rate his anxiety a 2, on the same scale. Pt denied any visual hallucinations. Pt noted auditory hallucinations yet continues to reduce slowly. Pt denied any current thoughts to harm himself or anyone else. No TD noted, AIMS=0 1.Interval hx 2.Continue current medications 3.Review current labs 4.Pt had an opportunity to ask questions and discuss current treatment plan. 5.Supportive therapy was provided 6.Pt encouraged to consider group or individual therapy 7.Pt was in agreement with treatment plan. 8.Pt was educated on the risks benefits and side effects of current medications. 9. Continue to titrate clozapine and reduce risperidone 10. Draw current depakote level Review of Systems Constitutional: Denies: fever, chills, weakness, weight change Eyes: Denies: eye pain, vision change Ears, Nose, Throat: Denies: ear pain, throat pain, dental pain, hearing loss, congestion Cardiovascular: Denies: chest pain, palpitations, dyspnea on exertion Respiratory: Denies: cough, dyspnea, wheezes Gastrointestinal: Denies: abdominal pain, nausea, vomiting, diarrhea, constipation Musculoskeletal: Denies: joint swelling, joint pain Neurological: Denies: headache, weakness, numbness, memory loss Psychiatric: Reports: abnormal sleep pattern, auditory hallucinations, visual hallucinations, difficulty concentrating Results - Vital Signs Vital Signs: Temp Pulse Resp BP Pulse Ox 98.4 F 96 18 143/95 96 02/17/18 09:00 02/17/18 09:00 02/17/18 09:00 02/17/18 09:00 02/17/18 09:00 - Labs Labs: Laboratory Results - last 24 hr 02/16/18 02/16/18 15:52 15:52 Troponin I < 0.03 C-Reactive Protein < 5 Assessment and Plan (1) Paranoid schizophrenia Current visit: No Status: Acute Plan: Continue hospitalization, Close observation, Suicide Precautions per unit protocol, Encourage participation in unit milieu, Group Therapy, Monitor sleep, Monitor appetite Risks, benefits, side effects, alternatives discussed w/pt: Yes Patient agreeable to treatment: Yes Consult Discharge Plan - Plan Referrals: Mikey Jaime MD [Non-Partnered Physician] - Psychiatry Exam - Constitutional Vitals: Temp Pulse Resp BP Pulse Ox 98.4 F 96 18 143/95 96 02/17/18 09:00 02/17/18 09:00 02/17/18 09:00 02/17/18 09:00 02/17/18 09:00 General appearance: age & developmentally appropriate, well-groomed, well-nourished - Musculoskeletal Gait: normal Station: relaxed Strength & Tone: normal for patient - Psychiatric Patient Orientation: Yes Person, Yes Time, Yes Place Level of alertness: Alert Behavior: calm, cooperative, guarded, suspicious Psychomotor activity: Normal Eye Contact: Minimal Contact Mood Description: Euthymic/stable, Anxious Affect description: congruent with mood, flat Speech Volume: Normal Speech pattern: normal rate, normal rhythm, normal tone, fluent, spontaneous Language & Vocabulary: consistent with education Thought Process: Linear, Goal Oriented, Thought Blocking Thought Content: No Suicidal ideation, No Homicidal ideation, No Overt delusions Perceptual Disturbances: No Auditory hallucinations, No Visual hallucinations Attention Span Ability: Capable of Focused Attention Memory Description: Grossly Intact Patient Reliability: Questionable Historian Fund of knowledge: Yes abstraction ability, Yes aware of current events Intelligence Estimate: Average Judgment: Poor Insight: Minimal
[2018-02-17] MEDS: traZODone 50 MG TABLET PO SCH (21:42)
[2018-02-17] MEDS: cloZAPine 100 MG TABLET PO SCH (21:43)
[2018-02-17] MEDS: hydrOXYzine pamoate 25 MG CAPSULE PO PRN (21:43)
[2018-02-17] MEDS: Divalproex (24 HR) 500 MG TABLET PO SCH (21:44)
[2018-02-17] MEDS: traZODone 50 MG TABLET PO PRN (21:44)
[2018-02-18] MEDS: risperiDONE 1 MG TABLET PO SCH ×2 (09:05→20:23)
[2018-02-18] MEDS: amLODIPine 5 MG TABLET PO SCH (09:06)
[2018-02-18] MEDS: cloNIDine HCl 0.1 MG TABLET PO SCH ×3 (09:06→20:22)
[2018-02-18] MEDS: Propranolol LA (24 HR) 60 MG CAP.SA.24H PO SCH (09:06)
[2018-02-18] MEDS: Nicotine 21 MG PATCH.TD24 TD SCH (09:07)
[2018-02-18 09:09] LABS: Basophils # 0.1 K/mcL (0.0-0.2); Basophils % 0.8 %; Eosinophils # 0.4 K/mcL (0.0-0.6); Eosinophils % 3.4 %; Hematocrit 47.8 % (37.5-50.1); Hemoglobin 15.8 g/dL (12.9-16.9); Immature Granulocytes % 0.3 % (0-4); Lymphocytes # 3.6 K/mcL (0.6-4.6); Lymphocytes % 34.6 %; Mean Corpuscular HGB Conc 33.1 g/dL (31.6-35.5); Mean Corpuscular Hemoglobin 30.7 pg (28.0-33.3); Mean Corpuscular Volume 92.8 fL (83.0-100.0); Mean Platelet Volume 10.7 fL (9.4-12.4); Monocytes # 0.4 K/mcL (0.0-1.3); Monocytes % 4.2 %; Neutrophils # 5.8 K/mcL (1.6-8.9); Platelet Count 348 K/mcL (140-400); Red Blood Count 5.15 M/mcL (4.19-5.50); Red Cell Distribution Width 13.4 % (11.5-14.5); Segmented Neutrophils % 56.7 %
--- NOTE | 2018-02-18 13:48 | Psychiatry Progress Note ---
Date of Encounter: 02/18/18 Time of Encounter: 12:15 Subjective Interval history: Pt is a 37 yo,, male, who presents for Schizophrenia. Pt noted he feels he is doing better. Pt and staff note significant improvement today, the voices have reduced a lot. Pt denied any side effects to current medications. Pt noted he felt safe and comfortable on the unit. Pt remains in agreement with current treatment plan. Pt noted that he is doing pretty good today. Pt noted he slept not much last night. Pt noted his appetite is better. Pt rated his depression a 0, on a scale of zero to ten with ten being the worst and zero being none. Pt rate his anxiety a 2, on the same scale. Pt denied any visual hallucinations. Pt noted auditory hallucinations yet continues to reduce slowly. Pt denied any current thoughts to harm himself or anyone else. No TD noted, AIMS=0 1.Interval hx 2.Continue current medications 3.Review current labs 4.Pt had an opportunity to ask questions and discuss current treatment plan. 5.Supportive therapy was provided 6.Pt encouraged to consider group or individual therapy 7.Pt was in agreement with treatment plan. 8.Pt was educated on the risks benefits and side effects of current medications. 9. Continue to titrate clozapine and reduce risperidone 10. Draw current depakote level and continue to titrate depakote Review of Systems Constitutional: Denies: fever, chills, weakness, weight change Eyes: Denies: eye pain, vision change Ears, Nose, Throat: Denies: ear pain, throat pain, dental pain, hearing loss, congestion Cardiovascular: Denies: chest pain, palpitations, dyspnea on exertion Respiratory: Denies: cough, dyspnea, wheezes Gastrointestinal: Denies: abdominal pain, nausea, vomiting, diarrhea, constipation Musculoskeletal: Denies: joint swelling, joint pain Neurological: Denies: headache, weakness, numbness, memory loss Psychiatric: Reports: abnormal sleep pattern, auditory hallucinations, visual hallucinations, difficulty concentrating Results - Vital Signs Vital Signs: Temp Pulse Resp BP Pulse Ox 97.8 F 91 18 131/73 95 02/18/18 08:49 02/18/18 08:49 02/18/18 08:49 02/18/18 08:49 02/18/18 08:49 - Labs Labs: Laboratory Results - last 24 hr 02/18/18 08:29 WBC 10.3 RBC 5.15 Hgb 15.8 Hct 47.8 MCV 92.8 MCH 30.7 MCHC 33.1 RDW 13.4 Plt Count 348 MPV 10.7 Immature Gran % 0.3 Seg Neutrophils % 56.7 Lymphocytes % 34.6 Monocytes % 4.2 Eosinophils % 3.4 Basophils % 0.8 Neutrophils # 5.8 Lymphocytes # 3.6 Monocytes # 0.4 Eosinophils # 0.4 Basophils # 0.1 Assessment and Plan (1) Paranoid schizophrenia Current visit: No Status: Acute Plan: Continue hospitalization, Close observation, Suicide Precautions per unit protocol, Encourage participation in unit milieu, Group Therapy, Monitor sleep, Monitor appetite Risks, benefits, side effects, alternatives discussed w/pt: Yes Patient agreeable to treatment: Yes Consult Discharge Plan - Plan Referrals: Mikey Jaime MD [Non-Partnered Physician] - Psychiatry Exam - Constitutional Vitals: Temp Pulse Resp BP Pulse Ox 97.8 F 91 18 131/73 95 02/18/18 08:49 02/18/18 08:49 02/18/18 08:49 02/18/18 08:49 02/18/18 08:49 General appearance: age & developmentally appropriate, well-groomed, well- nourished - Musculoskeletal Gait: normal Station: relaxed Strength & Tone: normal for patient - Psychiatric Patient Orientation: Yes Person, Yes Time, Yes Place Level of alertness: Alert Behavior: calm, cooperative Psychomotor activity: Normal Eye Contact: Maintains Eye Contact Mood Description: Euthymic/stable Affect description: congruent with mood, flat Speech Volume: Normal Speech pattern: normal rate, normal rhythm, fluent, spontaneous, monotone Language & Vocabulary: consistent with education Thought Process: Thought Blocking Thought Content: No Suicidal ideation, No Homicidal ideation, No Overt delusions Perceptual Disturbances: Yes Auditory hallucinations, No Visual hallucinations Attention Span Ability: Capable of Focused Attention Memory Description: Grossly Intact Patient Reliability: Questionable Historian Fund of knowledge: Yes abstraction ability, Yes aware of current events Intelligence Estimate: Average Judgment: Poor Insight: Minimal
[2018-02-18] MEDS: traZODone 50 MG TABLET PO SCH (20:23)
[2018-02-18] MEDS: cloZAPine 100 MG TABLET PO SCH (20:23)
[2018-02-18] MEDS: hydrOXYzine pamoate 25 MG CAPSULE PO PRN (20:23)
[2018-02-18] MEDS: Divalproex (24 HR) 500 MG TABLET PO SCH (20:23)
[2018-02-18] MEDS: traZODone 50 MG TABLET PO PRN (20:23)
[2018-02-19] MEDS: cloNIDine HCl 0.1 MG TABLET PO SCH ×3 (09:20→20:27)
[2018-02-19] MEDS: Propranolol LA (24 HR) 60 MG CAP.SA.24H PO SCH (09:20)
[2018-02-19] MEDS: amLODIPine 5 MG TABLET PO SCH (09:20)
[2018-02-19] MEDS: Nicotine 21 MG PATCH.TD24 TD SCH (09:21)
[2018-02-19] MEDS: risperiDONE 1 MG TABLET PO SCH ×2 (09:21→20:27)
--- NOTE | 2018-02-19 12:49 | Psychiatry Progress Note ---
Date of Encounter: 02/19/18 Time of Encounter: 10:30 Subjective Interval history: Pt is an 37 yo male who presents for follow up on his psychosis. Pt tells me today, "I'm good but tired. I'm actually doing much better." He tells me that he feels calmer on the medication and denies any more hallucinations. He denies any side effects except that he is a little fatigued. 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 He reports eating and sleeping better. He denies any issues with his mood. He denies any suicidal or homicidal ideation, auditory or visual hallucinations. Pt noted he currently feels safe and comfortable on the unit but is not communicating with his parents. He has no idea where he will discharge too regarding housing. AIMS=0 1. Continue current dose of Clozapine and further decrease Risperdal to discontinuation. 2. Encouraged him to participate in therapy on the unit to hopefully improve insight further. 3. Pt was in agreement with treatment plan at this time. 4. [address] prob[address] court hearing today. Review of Systems Psychiatric: Reports: abnormal sleep pattern, auditory hallucinations, visual hallucinations, difficulty concentrating Results - Vital Signs Vital Signs: Temp Pulse Resp BP Pulse Ox 97.9 F 92 16 133/83 95 02/19/18 09:00 02/19/18 09:00 02/19/18 09:00 02/19/18 09:00 02/19/18 09:00 Assessment and Plan (1) Paranoid schizophrenia Current visit: No Status: Acute Plan: Continue hospitalization, Close observation, Suicide Precautions per unit protocol, Encourage participation in unit milieu, Group Therapy, Monitor sleep, Monitor appetite Risks, benefits, side effects, alternatives discussed w/pt: Yes Patient agreeable to treatment: Yes Consult Discharge Plan - Plan Referrals: Mieky Jaime MD [Non-Partnered Physician] - Psychiatry Exam - Constitutional Vitals: Temp Pulse Resp BP Pulse Ox 97.9 F 92 16 133/83 95 02/19/18 09:00 02/19/18 09:00 02/19/18 09:00 02/19/18 09:00 02/19/18 09:00 General appearance: obese, other (Appears older than his reported age.) - Musculoskeletal Gait: slow Station: slouched Strength & Tone: normal for patient - Psychiatric Patient Orientation: Yes Person, Yes Time, Yes Place Level of alertness: Sedated Behavior: withdrawn Psychomotor activity: Slowed Eye Contact: Fleeting Contact Mood Description: Depressed Affect description: congruent with mood Speech Volume: Normal Speech pattern: normal rate, normal rhythm, normal tone Language & Vocabulary: consistent with education Thought Process: Circumstantial Thought Content: Yes Suicidal ideation (denies) Perceptual Disturbances: Yes Reacting to internal stimuli (questionable still) Attention Span Ability: Unable to Sustain Attention Memory Description: Recent Impaired Patient Reliability: Questionable Historian Fund of knowledge: Yes average Intelligence Estimate: Below Average Judgment: Limited Insight: Minimal
[2018-02-19] MEDS: traZODone 50 MG TABLET PO SCH (20:27)
[2018-02-19] MEDS: cloZAPine 100 MG TABLET PO SCH (20:27)
[2018-02-19] MEDS: Divalproex (24 HR) 500 MG TABLET PO SCH (20:28)
[2018-02-19] MEDS: hydrOXYzine pamoate 25 MG CAPSULE PO PRN (20:28)
[2018-02-19] MEDS: traZODone 50 MG TABLET PO PRN (20:28)
[2018-02-20] MEDS: amLODIPine 5 MG TABLET PO SCH (09:27)
[2018-02-20] MEDS: risperiDONE 1 MG TABLET PO SCH (09:27)
[2018-02-20] MEDS: Propranolol LA (24 HR) 60 MG CAP.SA.24H PO SCH (09:27)
[2018-02-20] MEDS: cloNIDine HCl 0.1 MG TABLET PO SCH ×3 (09:27→21:36)
[2018-02-20] MEDS: Nicotine 21 MG PATCH.TD24 TD SCH (09:28)
--- NOTE | 2018-02-20 12:04 | Psychiatry Progress Note ---
Date of Encounter: 02/20/18 Time of Encounter: 11:50 Subjective Interval history: Pt tells me today, "I'm okay." Patient reports that he ate a good breakfast and is not that hungry for lunch. He is resting comfortably. Not participating in all groups on the unit. Continues to deny that he is depressed or anxious. He denies any adverse side effects of the medications. He feels the new medication is helpful, "and I will stay on it once I go home." He reports that he is not having any unusual thoughts and denies any A/V hallucinations or paranoia. Staff did not report any paranoid behaviour today yet. He denies any suicidal or homicidal ideation, auditory or visual hallucinations. Pt noted he currently feels safe and comfortable on the unit but wants to see about discharge still. He tells me he can go back to his mom's house when he discharges. AIMS=0 Lab: 02/18/2018 CBC: wnl 1. Discontinue Risperdal from tapering. Increase Clozapine another 50 mg from current dose. 2. Encouraged him to work on discharge planning with the unit social services specialist for probable discharge soon. 3. Lab work per clozapine protocol. Review of Systems Psychiatric: Reports: abnormal sleep pattern, auditory hallucinations, visual hallucinations, difficulty concentrating Results - Vital Signs Vital Signs: Temp Pulse Resp BP Pulse Ox 98.4 F 114 20 159/90 95 02/20/18 09:00 02/20/18 09:00 02/20/18 09:00 02/20/18 09:00 02/20/18 09:00 Assessment and Plan (1) Paranoid schizophrenia Current visit: No Status: Acute Plan: Continue hospitalization, Close observation, Encourage participation in unit milieu, Group Therapy, Monitor sleep, Monitor appetite, Family/Supportive other meeting Risks, benefits, side effects, alternatives discussed w/pt: Yes (Discontinue Risperdal from taper. Increase Clozapine by 50 mg) Patient agreeable to treatment: Yes Consult Discharge Plan - Plan Referrals: Mikey Jaime MD [Non-Partnered Physician] - Psychiatry Exam - Constitutional Vitals: Temp Pulse Resp BP Pulse Ox 98.4 F 114 20 159/90 95 02/20/18 09:00 02/20/18 09:00 02/20/18 09:00 02/20/18 09:00 02/20/18 09:00 General appearance: obese - Musculoskeletal Gait: normal Station: other Strength & Tone: normal for patient - Psychiatric Patient Orientation: Yes Person, Yes Time, Yes Place Level of alertness: Follows commands Behavior: calm, cooperative Psychomotor activity: Normal Eye Contact: Maintains Eye Contact Mood Description: Anxious (mildly) Affect description: blunted (a little blunted. We will see if that improves off the Risperdal) Speech Volume: Normal Speech pattern: normal rate, normal rhythm, normal tone, fluent Language & Vocabulary: consistent with education Thought Process: Slowed Thinking Thought Content: Yes Intact Attention Span Ability: Capable of Focused Attention Memory Description: Grossly Intact Patient Reliability: Questionable Historian Fund of knowledge: Yes average Intelligence Estimate: Below Average Judgment: Fair Insight: Partial
[2018-02-20 16:32] LABS: Valproate Free <7 ug/mL (7-23); Valproate Total 57 ug/mL (50-125)
[2018-02-20] MEDS: Divalproex (24 HR) 500 MG TABLET PO SCH (21:34)
[2018-02-20] MEDS: traZODone 50 MG TABLET PO SCH (21:34)
[2018-02-20] MEDS: cloZAPine 100 MG TABLET PO SCH (21:36)
[2018-02-21] MEDS: cloZAPine 25 MG TABLET PO SCH (09:33)
[2018-02-21] MEDS: cloNIDine HCl 0.1 MG TABLET PO SCH ×3 (09:33→21:45)
[2018-02-21] MEDS: Nicotine 21 MG PATCH.TD24 TD SCH (09:33)
[2018-02-21] MEDS: Propranolol LA (24 HR) 60 MG CAP.SA.24H PO SCH (09:33)
[2018-02-21] MEDS: amLODIPine 5 MG TABLET PO SCH (09:33)
--- NOTE | 2018-02-21 17:01 | Psychiatry Progress Note ---
Date of Encounter: 02/21/18 Time of Encounter: 16:30 Subjective Interval history: Pt tells me today, "I'm more tired than usual." Patient reports he is struggling to get to groups secondary to fatigue. He wants to sleep. He went to a few groups, but it was a struggle. He denies any side effects of his medications, except possible tired feeling from the added morning dose of clozapine. He is hopeful to go home soon. He feels safe. Has no other complaints. He denies any suicidal/homicidal ideation, auditory or visual hallucinations. Looking forward to visiting with his family tonight. 1. Continue current dose of medications as currently written. Consider changing the AM dose of clozapine to PM if the day time fatigue continues. 2. Pending lab Sunday; clozapine protocol. 3. Encouraged her to start discharge planning with the social work associate. Review of Systems Psychiatric: Reports: abnormal sleep pattern, auditory hallucinations, visual hallucinations, difficulty concentrating Results - Vital Signs Vital Signs: Temp Pulse Resp BP Pulse Ox 97.9 F 98 18 141/93 96 02/21/18 09:00 02/21/18 09:00 02/21/18 09:00 02/21/18 09:00 02/21/18 09:00 - Drug Levels and Toxicology Drug Levels and Toxicology: Drug Levels and Toxicity 02/18/18 08:29 Free Valproic Acid <7 L Total Valproic Acid 57 - Labs Labs: Laboratory Results - last 24 hr 02/18/18 08:29 Free Valproic Acid <7 L Total Valproic Acid 57 % Free Valproic Acid NOT APPLICABLE Assessment and Plan (1) Paranoid schizophrenia Current visit: No Status: Acute Plan: Continue hospitalization, Close observation, Group Therapy, Monitor sleep, Monitor appetite Risks, benefits, side effects, alternatives discussed w/pt: Yes Patient agreeable to treatment: Yes Consult Discharge Plan - Plan Referrals: Mikey Jaime MD [Non-Partnered Physician] - Psychiatry Exam - Constitutional Vitals: Temp Pulse Resp BP Pulse Ox 97.9 F 98 18 141/93 96 02/21/18 09:00 02/21/18 09:00 02/21/18 09:00 02/21/18 09:00 02/21/18 09:00 General appearance: obese - Musculoskeletal Gait: other (lying in bed) Station: relaxed - Psychiatric Patient Orientation: Yes Person, Yes Place Level of alertness: Sedated Behavior: calm Psychomotor activity: Slowed Eye Contact: Fleeting Contact Mood Description: Depressed Affect description: congruent with mood Speech Volume: Normal Speech pattern: normal rate, normal rhythm, normal tone Language & Vocabulary: consistent with education Thought Process: Logical (more than he had been) Thought Content: Yes Intact (denies) Attention Span Ability: Capable of Focused Attention Memory Description: Grossly Intact Patient Reliability: Questionable Historian Fund of knowledge: Yes average Intelligence Estimate: Below Average Judgment: Fair Insight: Partial
[2018-02-21] MEDS: Divalproex (24 HR) 500 MG TABLET PO SCH (21:45)
[2018-02-21] MEDS: cloZAPine 100 MG TABLET PO SCH (21:45)
[2018-02-21] MEDS: traZODone 50 MG TABLET PO SCH (21:45)
[2018-02-22] MEDS: amLODIPine 5 MG TABLET PO SCH (09:06)
[2018-02-22] MEDS: cloZAPine 25 MG TABLET PO SCH (09:06)
[2018-02-22] MEDS: Nicotine 21 MG PATCH.TD24 TD SCH (09:06)
[2018-02-22] MEDS: cloNIDine HCl 0.1 MG TABLET PO SCH ×3 (09:06→20:10)
[2018-02-22] MEDS: Propranolol LA (24 HR) 60 MG CAP.SA.24H PO SCH (09:06)
[2018-02-22] MEDS: traZODone 50 MG TABLET PO SCH (20:10)
[2018-02-22] MEDS: Divalproex (24 HR) 500 MG TABLET PO SCH (20:11)
[2018-02-22] MEDS ORDERED: cloZAPine 100 MG TABLET PO SCH (21:00)
--- NOTE | 2018-02-22 23:40 | Psychiatry Progress Note ---
Date of Encounter: 02/22/18 Time of Encounter: 15:30 Subjective Interval history: Pt tells me today, "I'm real good." Patient reports he is feeling much better. He denies any side effects of his medications, except the day time tiredness. He request to move the 50 mg clozapine dose to add to evening, even though he is less tired today. When he discharges, he will be working during the day and needs to be able to focus and work. He is hopeful to go home soon. He feels stable in his thoughts and mood and feels he can function fine in outpatient. He is feeling less depressed, and more hopeful. He is sleeping better with medications. He feels safe here. Has no other complaints. He denies any suicidal/homicidal ideation, auditory or visual hallucinations. Looking forward to visiting with his family tonight. 1. Change clozapiiine 50 mg AM dose to add for total of 200 mg po PM. 2. Discharge planning with the social media marketing specialist, probable Sunday after lab results are reported Review of Systems Psychiatric: Reports: abnormal sleep pattern, auditory hallucinations, visual hallucinations, difficulty concentrating Results - Vital Signs Vital Signs: Temp Pulse Resp BP Pulse Ox 98.0 F 90 18 123/80 95 02/22/18 20:15 02/22/18 20:15 02/22/18 20:15 02/22/18 20:15 02/22/18 20:15 Assessment and Plan (1) Paranoid schizophrenia Current visit: No Status: Acute Plan: Continue hospitalization, Encourage participation in unit milieu, Group Therapy, Monitor sleep, Monitor appetite Risks, benefits, side effects, alternatives discussed w/pt: Yes (Change all clozapine dosage to PM) Patient agreeable to treatment: Yes Consult Discharge Plan - Plan Referrals: Mikey Jaime MD [Non-Partnered Physician] - Psychiatry Exam - Constitutional Vitals: Temp Pulse Resp BP Pulse Ox 98.0 F 90 18 123/80 95 02/22/18 20:15 02/22/18 20:15 02/22/18 20:15 02/22/18 20:15 02/22/18 20:15 General appearance: obese - Musculoskeletal Gait: normal Station: relaxed Strength & Tone: normal for patient - Psychiatric Patient Orientation: Yes Person, Yes Time, Yes Place Level of alertness: Alert (moreso today) Behavior: calm Psychomotor activity: Normal Eye Contact: Maintains Eye Contact Mood Description: Anxious (mildly) Affect description: congruent with mood (affect is brighter today. He is more engaged) Speech Volume: Normal Speech pattern: normal rate, normal rhythm, normal tone Language & Vocabulary: consistent with education Thought Process: Intact, Goal Oriented Thought Content: Yes Intact Attention Span Ability: Capable of Focused Attention Memory Description: Grossly Intact Patient Reliability: Reliable Historian Fund of knowledge: Yes average Intelligence Estimate: Average Judgment: Good Insight: Partial (Improved)
[2018-02-23] MEDS: cloNIDine HCl 0.1 MG TABLET PO SCH ×3 (09:08→21:41)
[2018-02-23] MEDS: Propranolol LA (24 HR) 60 MG CAP.SA.24H PO SCH (09:08)
[2018-02-23] MEDS: amLODIPine 5 MG TABLET PO SCH (09:08)
[2018-02-23] MEDS: Nicotine 21 MG PATCH.TD24 TD SCH (09:08)
--- NOTE | 2018-02-23 12:06 | Psychiatry Progress Note ---
Date of Encounter: 02/23/18 Time of Encounter: 11:30 Subjective Interval history: Pt is a 37 yo,, male, who presents for Schizophrenia. Pt continues to note he feels he is doing better. Pt and staff note significant improvement today, the voices have reduced a lot. Pt denied any side effects to current medications. Pt noted he felt safe and comfortable on the unit. Pt remains in agreement with current treatment plan. Pt noted that he is doing pretty good today. Pt noted he slept pretty good last night. Pt noted his appetite is better. Pt rated his depression a 0, on a scale of zero to ten with ten being the worst and zero being none. Pt rate his anxiety a 1, on the same scale. Pt denied any auditory or visual hallucinations. Pt denied any current thoughts to harm himself or anyone else. Pt was in agreement with treatment plan. Pt noted he felt safe and comfortable on the unit. No TD noted, AIMS=0 1.Interval hx 2.Continue current medications 3.Review current labs 4.Pt had an opportunity to ask questions and discuss current treatment plan. 5.Supportive therapy was provided 6.Pt encouraged to consider group or individual therapy 7.Pt was in agreement with treatment plan. 8.Pt was educated on the risks benefits and side effects of current medications. 9. Continue to titrate clozapine and reduce risperidone 10. Draw current depakote level and continue to titrate depakote Review of Systems Constitutional: Denies: fever, chills, weakness, weight change Eyes: Denies: eye pain, vision change Ears, Nose, Throat: Denies: ear pain, throat pain, dental pain, hearing loss, congestion Cardiovascular: Denies: chest pain, palpitations, dyspnea on exertion Respiratory: Denies: cough, dyspnea, wheezes Gastrointestinal: Denies: abdominal pain, nausea, vomiting, diarrhea, constipation Musculoskeletal: Denies: joint swelling, joint pain Neurological: Denies: headache, weakness, numbness, memory loss Psychiatric: Reports: abnormal sleep pattern, auditory hallucinations, visual hallucinations, difficulty concentrating Results - Vital Signs Vital Signs: Temp Pulse Resp BP Pulse Ox 98 F 97 20 128/84 96 02/23/18 09:00 02/23/18 09:00 02/23/18 09:00 02/23/18 09:00 02/23/18 09:00 Assessment and Plan (1) Paranoid schizophrenia Current visit: No Status: Acute Plan: Continue hospitalization, Close observation, Suicide Precautions per unit protocol, Encourage participation in unit milieu, Group Therapy, Monitor sleep, Monitor appetite Risks, benefits, side effects, alternatives discussed w/pt: Yes (Change all clozapine dosage to PM) Patient agreeable to treatment: Yes Consult Discharge Plan - Plan Referrals: Mikey Jaime MD [Non-Partnered Physician] - Psychiatry Exam - Constitutional Vitals: Temp Pulse Resp BP Pulse Ox 98 F 97 20 128/84 96 02/23/18 09:00 02/23/18 09:00 02/23/18 09:00 02/23/18 09:00 02/23/18 09:00 General appearance: age & developmentally appropriate, well-groomed, well- nourished - Musculoskeletal Gait: normal Station: relaxed Strength & Tone: normal for patient - Psychiatric Patient Orientation: Yes Person, Yes Time, Yes Place Level of alertness: Alert Behavior: calm, cooperative Psychomotor activity: Normal Eye Contact: Maintains Eye Contact Mood Description: Euthymic/stable Affect description: congruent with mood, flat Speech Volume: Normal Speech pattern: normal rate, normal rhythm, normal tone, fluent, spontaneous Language & Vocabulary: consistent with education Thought Process: Linear, Thought Blocking Thought Content: No Suicidal ideation, No Homicidal ideation, No Overt delusions Perceptual Disturbances: No Auditory hallucinations, No Visual hallucinations Attention Span Ability: Capable of Focused Attention Memory Description: Grossly Intact Patient Reliability: Questionable Historian Fund of knowledge: Yes abstraction ability, Yes aware of current events Intelligence Estimate: Average Judgment: Limited Insight: Partial
[2018-02-23] MEDS: cloZAPine 100 MG TABLET PO SCH (21:38)
[2018-02-23] MEDS: Divalproex (24 HR) 500 MG TABLET PO SCH (21:40)
[2018-02-23] MEDS: traZODone 50 MG TABLET PO SCH (21:41)
[2018-02-24] MEDS: Nicotine 21 MG PATCH.TD24 TD SCH (09:00)
[2018-02-24] MEDS: cloNIDine HCl 0.1 MG TABLET PO SCH ×3 (09:10→20:48)
[2018-02-24] MEDS: Propranolol LA (24 HR) 60 MG CAP.SA.24H PO SCH (09:10)
[2018-02-24] MEDS: amLODIPine 5 MG TABLET PO SCH (09:11)
--- NOTE | 2018-02-24 12:28 | Psychiatry Progress Note ---
Date of Encounter: 02/24/18 Time of Encounter: 11:30 Subjective Interval history: Pt is a 37 yo,, male, who presents for Schizophrenia. Pt continues to note he feels he is doing better. Pt and staff note significant improvement today, the voices have reduced a lot. Pt denied any side effects to current medications. Pt noted he felt safe and comfortable on the unit. Pt remains in agreement with current treatment plan. Pt noted that he is doing pretty good today. Pt noted he slept pretty good last night. Pt noted his appetite is better. Pt rated his depression a 0, on a scale of zero to ten with ten being the worst and zero being none. Pt rate his anxiety a 1, on the same scale. Pt denied any auditory or visual hallucinations. Pt denied any current thoughts to harm himself or anyone else. Pt was in agreement with treatment plan. Pt noted he felt safe and comfortable on the unit. Pt noted "I feel the best I have been in a long time." No TD noted, AIMS=0 1.Interval hx 2.Continue current medications 3.Review current labs 4.Pt had an opportunity to ask questions and discuss current treatment plan. 5.Supportive therapy was provided 6.Pt encouraged to consider group or individual therapy 7.Pt was in agreement with treatment plan. 8.Pt was educated on the risks benefits and side effects of current medications. 9. Continue to coordinate D/C planning. Review of Systems Constitutional: Denies: fever, chills, weakness, weight change Eyes: Denies: eye pain, vision change Ears, Nose, Throat: Denies: ear pain, throat pain, dental pain, hearing loss, congestion Cardiovascular: Denies: chest pain, palpitations, dyspnea on exertion Respiratory: Denies: cough, dyspnea, wheezes Gastrointestinal: Denies: abdominal pain, nausea, vomiting, diarrhea, constipation Musculoskeletal: Denies: joint swelling, joint pain Neurological: Denies: headache, weakness, numbness, memory loss Psychiatric: Reports: abnormal sleep pattern, auditory hallucinations, visual hallucinations, difficulty concentrating Results - Vital Signs Vital Signs: Temp Pulse Resp BP Pulse Ox 98.2 F 98 18 136/88 94 02/24/18 09:00 02/24/18 09:00 02/24/18 09:00 02/24/18 09:00 02/24/18 09:00 Assessment and Plan (1) Paranoid schizophrenia Current visit: No Status: Acute Plan: Continue hospitalization, Close observation, Suicide Precautions per unit protocol, Encourage participation in unit milieu, Group Therapy, Monitor sleep, Monitor appetite Risks, benefits, side effects, alternatives discussed w/pt: Yes (Change all clozapine dosage to PM) Patient agreeable to treatment: Yes Consult Discharge Plan - Plan Referrals: Mikey Jaime MD [Non-Partnered Physician] - Psychiatry Exam - Constitutional Vitals: Temp Pulse Resp BP Pulse Ox 98.2 F 98 18 136/88 94 02/24/18 09:00 02/24/18 09:00 02/24/18 09:00 02/24/18 09:00 02/24/18 09:00 General appearance: age & developmentally appropriate, well-groomed, well- nourished - Musculoskeletal Gait: normal Station: relaxed Strength & Tone: normal for patient - Psychiatric Patient Orientation: Yes Person, Yes Time, Yes Place Level of alertness: Alert Behavior: calm, cooperative Psychomotor activity: Normal Eye Contact: Maintains Eye Contact Mood Description: Euthymic/stable Affect description: congruent with mood, full range Speech Volume: Normal Speech pattern: normal rate, normal rhythm, fluent, spontaneous, monotone Language & Vocabulary: consistent with education Thought Process: Linear, Goal Oriented Thought Content: No Suicidal ideation, No Homicidal ideation, No Overt delusions Perceptual Disturbances: No Auditory hallucinations, No Visual hallucinations Attention Span Ability: Capable of Focused Attention Memory Description: Grossly Intact Patient Reliability: Reliable Historian Fund of knowledge: Yes abstraction ability, Yes aware of current events Intelligence Estimate: Average Judgment: Limited Insight: Partial
[2018-02-24 15:40] LABS: Basophils # 0.1 K/mcL (0.0-0.2); Basophils % 0.6 %; Eosinophils # 0.5 K/mcL (0.0-0.6); Eosinophils % 3.9 %; Hematocrit 46.3 % (37.5-50.1); Hemoglobin 15.3 g/dL (12.9-16.9); Immature Granulocytes % 0.3 % (0-4); Lymphocytes # 3.7 K/mcL (0.6-4.6); Lymphocytes % 31.9 %; Mean Corpuscular Hemoglobin 30.6 pg (28.0-33.3); Mean Corpuscular Volume 92.6 fL (83.0-100.0); Mean Platelet Volume 10.9 fL (9.4-12.4); Monocytes # 0.9 K/mcL (0.0-1.3); Monocytes % 7.9 %; Neutrophils # 6.4 K/mcL (1.6-8.9); Platelet Count 312 K/mcL (140-400); Red Cell Distribution Width 12.9 % (11.5-14.5); Segmented Neutrophils % 55.4 %
[2018-02-24] MEDS: Divalproex (24 HR) 500 MG TABLET PO SCH (20:47)
[2018-02-24] MEDS: traZODone 50 MG TABLET PO SCH (20:47)
[2018-02-24] MEDS: cloZAPine 100 MG TABLET PO SCH (20:47)
[2018-02-25] MEDS: Nicotine 21 MG PATCH.TD24 TD SCH (08:41)
[2018-02-25] MEDS: Propranolol LA (24 HR) 60 MG CAP.SA.24H PO SCH (08:42)
[2018-02-25] MEDS: cloNIDine HCl 0.1 MG TABLET PO SCH ×3 (08:42→20:36)
[2018-02-25] MEDS: amLODIPine 5 MG TABLET PO SCH (08:42)
--- NOTE | 2018-02-25 10:54 | Psychiatry Progress Note ---
Date of Encounter: 02/25/18 Time of Encounter: 09:00 Subjective Interval history: Pt is a 37 yo,, male, who presents for Schizophrenia. Pt continues to note he feels he is doing better. Pt and staff note significant improvement again today, pt noted the voices are gone. Pt denied any side effects to current medications. Pt noted he felt safe and comfortable on the unit. Pt remains in agreement with current treatment plan. Pt noted that he is doing really good today. Pt noted he slept pretty good last night. Pt noted his appetite is great. Pt rated his depression a 0, on a scale of zero to ten with ten being the worst and zero being none. Pt rate his anxiety a 1, on the same scale. Pt denied any auditory or visual hallucinations. Pt denied any current thoughts to harm himself or anyone else. Pt was in agreement with treatment plan. Pt noted he felt safe and comfortable on the unit. Pt was in agreement that he is nearing discharge stability No TD noted, AIMS=0 1.Interval hx 2.Continue current medications 3.Review current labs 4.Pt had an opportunity to ask questions and discuss current treatment plan. 5.Supportive therapy was provided 6.Pt encouraged to consider group or individual therapy 7.Pt was in agreement with treatment plan. 8.Pt was educated on the risks benefits and side effects of current medications. 9. Continue to coordinate D/C planning. Review of Systems Constitutional: Denies: fever, chills, weakness, weight change Eyes: Denies: eye pain, vision change Ears, Nose, Throat: Denies: ear pain, throat pain, dental pain, hearing loss, congestion Cardiovascular: Denies: chest pain, palpitations, dyspnea on exertion Respiratory: Denies: cough, dyspnea, wheezes Gastrointestinal: Denies: abdominal pain, nausea, vomiting, diarrhea, constipation Musculoskeletal: Denies: joint swelling, joint pain Neurological: Denies: headache, weakness, numbness, memory loss Psychiatric: Reports: abnormal sleep pattern, auditory hallucinations, visual hallucinations, difficulty concentrating Results - Vital Signs Vital Signs: Temp Pulse Resp BP Pulse Ox 97.1 F L 98 14 162/99 94 02/25/18 09:00 02/25/18 09:00 02/25/18 09:00 02/25/18 09:00 02/25/18 09:00 - Labs Labs: Laboratory Results - last 24 hr 02/24/18 15:20 WBC 11.5 H RBC 5.00 Hgb 15.3 Hct 46.3 MCV 92.6 MCH 30.6 MCHC 33.0 RDW 12.9 Plt Count 312 MPV 10.9 Immature Gran % 0.3 Seg Neutrophils % 55.4 Lymphocytes % 31.9 Monocytes % 7.9 Eosinophils % 3.9 Basophils % 0.6 Neutrophils # 6.4 Lymphocytes # 3.7 Monocytes # 0.9 Eosinophils # 0.5 Basophils # 0.1 Assessment and Plan (1) Paranoid schizophrenia Current visit: No Status: Acute Plan: Continue hospitalization, Close observation, Suicide Precautions per unit protocol, Encourage participation in unit milieu, Group Therapy, Monitor sleep, Monitor appetite Risks, benefits, side effects, alternatives discussed w/pt: Yes (Change all clozapine dosage to PM) Patient agreeable to treatment: Yes Consult Discharge Plan - Plan Referrals: Mikey Jaime MD [Non-Partnered Physician] - Psychiatry Exam - Constitutional Vitals: Temp Pulse Resp BP Pulse Ox 97.1 F L 98 14 162/99 94 02/25/18 09:00 02/25/18 09:00 02/25/18 09:00 02/25/18 09:00 02/25/18 09:00 General appearance: age & developmentally appropriate, well-groomed, well-no urished - Musculoskeletal Gait: normal Station: relaxed Strength & Tone: normal for patient - Psychiatric Patient Orientation: Yes Person, Yes Time, Yes Place Level of alertness: Alert Behavior: calm, cooperative Psychomotor activity: Normal Eye Contact: Maintains Eye Contact Mood Description: Euthymic/stable Affect description: congruent with mood, full range Speech Volume: Normal Speech pattern: normal rate, normal rhythm, normal tone, fluent, spontaneous Language & Vocabulary: consistent with education Thought Process: Linear, Goal Oriented, Thought Blocking Thought Content: No Suicidal ideation, No Homicidal ideation, No Overt delusions Perceptual Disturbances: No Auditory hallucinations, No Visual hallucinations Attention Span Ability: Capable of Focused Attention Memory Description: Grossly Intact Patient Reliability: Reliable Historian Fund of knowledge: Yes abstraction ability, Yes aware of current events Intelligence Estimate: Average Judgment: Limited Insight: Partial
[2018-02-25] MEDS: Divalproex (24 HR) 500 MG TABLET PO SCH (20:35)
[2018-02-25] MEDS: cloZAPine 100 MG TABLET PO SCH (20:35)
[2018-02-25] MEDS: traZODone 50 MG TABLET PO PRN (20:36)
[2018-02-25] MEDS: traZODone 50 MG TABLET PO SCH (20:36)
[2018-02-26 08:28] VITALS: BP 139/84
[2018-02-26] MEDS: cloNIDine HCl 0.1 MG TABLET PO SCH (09:09)
[2018-02-26] MEDS: amLODIPine 5 MG TABLET PO SCH (09:09)
[2018-02-26] MEDS: Nicotine 21 MG PATCH.TD24 TD SCH (09:10)
[2018-02-26] MEDS: Propranolol LA (24 HR) 60 MG CAP.SA.24H PO SCH (09:10)
[2018-02-26 10:46] LABS: Basophils # 0.1 K/mcL (0.0-0.2); Basophils % 0.7 %; Eosinophils # 0.4 K/mcL (0.0-0.6); Eosinophils % 4.5 %; Hematocrit 45.7 % (37.5-50.1); Hemoglobin 15.3 g/dL (12.9-16.9); Immature Granulocytes % 0.2 % (0-4); Lymphocytes # 2.5 K/mcL (0.6-4.6); Lymphocytes % 24.9 %; Mean Corpuscular HGB Conc 33.5 g/dL (31.6-35.5); Mean Corpuscular Hemoglobin 30.5 pg (28.0-33.3); Mean Corpuscular Volume 91.2 fL (83.0-100.0); Mean Platelet Volume 11.2 fL (9.4-12.4); Monocytes # 0.8 K/mcL (0.0-1.3); Neutrophils # 6.1 K/mcL (1.6-8.9); Platelet Count 248 K/mcL (140-400); Red Blood Count 5.01 M/mcL (4.19-5.50); Red Cell Distribution Width 13.2 % (11.5-14.5); Segmented Neutrophils % 61.7 %
[2018-02-26 11:02] LABS: BUN/Creatinine Ratio 20 (6-26); Blood Urea Nitrogen 12 mg/dL (6-20); Calcium 9.1 mg/dL (8.6-10.3); Carbon Dioxide 26 mEq/L (23-29); Chloride 106 mEq/L (98-107); Glucose 134 mg/dL (70-105); Osmolality,Calculated 286 (280-300); Potassium 3.8 mEq/L (3.5-5.1); Sodium 137 mEq/L (136-145); eGFR For Non-African Americans > 60 (> 60)
--- NOTE | 2018-02-26 11:30 | Discharge Summary ---
Date of Encounter: 02/26/18 Time of Encounter: 11:15 Diagnosis - Discharge Diagnosis (1) Paranoid schizophrenia Status: Acute Medications - Discharge Medications Prescriptions: amLODIPine [Norvasc] 5 mg PO DAILY #30 tablet cloNIDine HCl [CloNIDine HCl] 0.1 mg PO TID #90 tablet cloZAPine [Clozaril] 250 mg PO HS #75 tablet Divalproex (24 HR) [Depakote ER (24 HR)] 1,000 mg PO HS #60 tab.er.24h Docusate [Colace] 100 mg PO DAILY #30 capsule Propranolol LA (24 HR) [Inderal LA] 60 mg PO DAILY #30 cap.sa.24h Simvastatin [Zocor] 20 mg PO HS 01/01/18 [History] Tamsulosin [Flomax] 0.4 mg PO DAILY #20 cap.er.24h 01/01/18 [Rx] traZODone [TraZODone] 100 mg PO HS 01/01/18 [History] Amantadine [Symmetrel] 100 mg PO BID 02/03/18 [History] Divalproex (24 HR) [Depakote ER (24 HR)] 1,000 mg PO HS #60 tab.er.24h 02/26/18 [Rx] Docusate [Colace] 100 mg PO DAILY #30 capsule 02/26/18 [Rx] Propranolol LA (24 HR) [Inderal LA] 60 mg PO DAILY #30 cap.sa.24h 02/26/18 [Rx] amLODIPine [Norvasc] 5 mg PO DAILY #30 tablet 02/26/18 [Rx] cloNIDine HCl [CloNIDine HCl] 0.1 mg PO TID #90 tablet 02/26/18 [Rx] cloZAPine [Clozaril] 250 mg PO HS #75 tablet 02/26/18 [Rx] Allergy/AdvReac Type Severity Reaction Status Date / Time No Known Allergies Allergy Verified 02/03/18 09:37 Results Procedures and tests throughout hospitalization: Completed Lab Orders Category Date Time Status Acetaminophen Stat Lab 02/02/18 19:22 Completed Basic Metabolic Panel Stat Lab 02/02/18 19:22 Completed CBC [Complete Blood Count] [HEME] Routine Lab 02/18/18 08:29 Completed CBC [Complete Blood Count] [HEME] Routine Lab 02/24/18 15:20 Completed CBC [Complete Blood Count] [HEME] Routine Lab 02/26/18 10:33 Completed CBC [Complete Blood Count] [HEME] Routine Lab 02/08/18 12:42 Completed CBC [Complete Blood Count] [HEME] Routine Lab 02/11/18 10:24 Completed CRP [C-Reactive Protein] Routine Lab 02/16/18 15:52 Completed Chem 7 [Basic Metabolic Panel] Routine Lab 02/26/18 10:33 Completed Complete Blood Count [HEME] Stat Lab 02/02/18 19:22 Completed Comprehensive Metabolic Panel Routine Lab 02/13/18 11:10 Completed Comprehensive Metabolic Panel Routine Lab 02/08/18 12:42 Completed Drug Screen, Urine [UCHEM] Stat Lab 02/02/18 19:50 Completed Ethanol Stat Lab 02/02/18 19:22 Completed Salicylate Stat Lab 02/02/18 19:22 Completed Troponin I Routine Lab 02/16/18 15:52 Completed Urinalysis reflex Microscopic [URIN] Stat Lab 02/02/18 19:50 Completed Valproate Total & Free Routine Lab 02/18/18 08:29 Completed cpk [Creatine Kinase] Routine Lab 02/08/18 12:42 Completed Provider Date of admission: 02/03/18 00:22 Primary care physician: PCP NONE Consults: 02/11/18 08:46 Consult to Hospitalist [CONS] Stat Consulting Provider: Hospitalist Ulises Reason for Consult: Pulse 224 Time Notified: 08:49 Call Completed: Yes Discharging clinician: Carly Mariee Psychiatry Exam - Constitutional Vitals: Temp Pulse Resp BP Pulse Ox 97.7 F 100 18 139/84 96 02/26/18 08:27 02/26/18 08:27 02/26/18 08:27 02/26/18 08:27 02/26/18 08:27 General appearance: obese - Musculoskeletal Gait: normal Station: relaxed Strength & Tone: normal for patient - Psychiatric Patient Orientation: Yes Person, Yes Time, Yes Place Level of alertness: Alert Behavior: calm, cooperative Psychomotor activity: Normal Eye Contact: Intense Contact Mood Description: Euthymic/stable Affect description: flat Speech Volume: Normal Speech pattern: normal rate, normal tone Language & Vocabulary: consistent with education Thought Process: Linear Thought Content: No Suicidal ideation, No Homicidal ideation, No Overt delusions Perceptual Disturbances: No Auditory hallucinations, No Visual hallucinations Attention Span Ability: Capable of Focused Attention Memory Description: Grossly Intact Patient Reliability: Questionable Historian Fund of knowledge: Yes below average Intelligence Estimate: Below Average Judgment: Fair Insight: Partial Hospital Course Hospital course: Mr. Porras is a 37 year old male who was admitted secondary to psychosis. He had a long inpatient stay while different meds were titrated and stopped due to side effects or lack of efficacy. He was eventually started on Clozapine with good clinical effect. He is no longer hearing voices. He is able to maintain eye contact and participate in a conversation. Mood appears stable. Denies SI/HI today. Wants to go home. Lives with parents and they are supportive. Staff report they are eager to have him home as well. Seems to be tolerating Clozapine well. Denies side effects other than feeling tired. Willing to comply with weekly blood draws. Parents can assist with this. Labs have been stable. - Time Spent with Patient Total time spent providing and/or coordinating discharge services: Assessment and Plan - Patient/Caregiver Discharge Instructions Activity: resume usual activities as tolerated Diet: low fat, low cholesterol - Follow up Plan Follow up with: [facility] [Outside] - 03/04/18 9:00 am (Appointment scheduled for SundayMarch 04 at 9:[address] Mendez. ) Mikey Jaime MD [Non-Partnered Physician] - Functional capacity at discharge: independent ambulation Overall status at discharge: Stable Disposition: Home, Self-Care Quality - Multiple Antipsychotics Patient discharged on 2 or more antipsychotic medications: No Procedures - Procedures Procedures: Medication Management, Crisis Stabilization, Supportive Therapy, Group Therapy
== END 2018-02-26 12:25 | disposition home or self-care (01) | DRG 885 ==
LOC: EMEROOARM 18:37 → SUATTDRO 02-03 00:22 → 1ANU 02-03 00:22
PROVIDERS: ADMIT Psychiatry & Neurology Psychiatry; ATTEND Psychiatry & Neurology Psychiatry